=== PATIENT | male | born 1930 | race Caucasian/White ===

== ENCOUNTER 2018-12-27 12:51 | Emergency (ER) | payer MEDICARE, OTHER ==
[2018-12-27 13:21] LABS: #Basophils 0.1 thou/uL (0.0-0.2); #Eosinphils 0.2 thou/uL (0.0-0.7); #Lymphocytes 2.5 thou/uL (1.20-3.40); #Monocytes 0.7 thou/uL (0.11-0.59); #Neutrophils 4.6 thou/uL (1.40-6.50); %Basophils 0.9 % (0.0-1.0); %Eosinophils 1.9 % (0.0-10.0); %Lymphocytes 31.1 % (21.0-51.0); %Monocytes 8.8 % (0.0-10.0); %Neutrophils 57.2 % (42.0-75.0); Hemoglobin 14.3 g/dL (14.0-18.0); Mean Corpuscular HGB CONC 33.9 g/dL (32.0-36.0); Mean Corpuscular Hemoglobin 29.1 pg (27.0-31.0); Mean Corpuscular Volume 85.8 fL (78.0-98.0); Mean Platelet Volume 8.5 fL (7.4-10.4); Platelet Count 200 thou/uL (130-400); RBC Distribution Width 13.9 % (11.5-14.5); Red Blood Cell (RBC) Count 4.93 mill/uL (4.70-6.10)
--- NOTE | 2018-12-27 13:26 | RAD ---
EXAM: Single view of the chest HISTORY: Altered mental status COMPARISON: 10/07/2015 FINDINGS: Single view of the chest shows an enlarged but stable cardiomediastinal silhouette. Athero sclerotic calcification are seen in the aorta. A pacemaker is seen with its leads in the right atrium and ventricle. There is no evidence of consolidation, mass, or pleural effusion. [place] pro jects over the chest. IMPRESSION: No evidence of acute cardiopulmonary disease
[2018-12-27 13:45] LABS: ALT (SGPT) 10 U/L (8-55); AST (SGOT) 11 U/L (5-34); Albumin 3.8 g/dL (3.4-4.8); Alkaline Phosphatase 104 U/L (40-150); Anion Gap 15 mmol/L (10-20); BUN (Urea Nitrogen) 12 mg/dL (8.4-25.7); Bilirubin, Total 0.7 mg/dL (0.2-1.2); Calc. Creatinine Clearance 0 mL/min (70-130); Calcium 9.7 mg/dL (7.8-10.44); Carbon Dioxide 20 mmol/L (23-31); Chloride 107 mmol/L (98-107); Estimated GFR-MDRD 59; Globulin 3.1 g/dL (2.4-3.5); Glucose 343 mg/dL (83-110); Potassium 3.9 mmol/L (3.5-5.1); Protein, Total 6.9 g/dL (5.8-8.1); Sodium 138 mmol/L (136-145)
[2018-12-27 14:26] LABS: Bacteria/HPF None Seen HPF (None Seen); Bilirubin Negative (Negative); Blood, Urine Negative (Negative); Clarity Clear (Clear); Glucose, Urine (Dipstick) Greater than 1000 mg/dL (Negative); Leukocyte Negative Leu/uL (Negative); Nitrite Negative (Negative); Protein, Urine (Dipstick) 70 mg/dL (Neg-Trace); RBC/HPF 0-3 HPF (0-3); Squamous Epithelial 0-3 HPF (0-3); Urobilinogen Normal mg/dL (Less than 2); WBC/HPF 0-3 HPF (0-3)
== END 2018-12-27 14:40 | disposition home or self-care (01) ==
LOC: ERS 12:51
DX: E86.0 Dehydration (principal); E11.9 Type 2 diabetes mellitus without complications; I10 Essential (primary) hypertension
CPT/HCPCS: 36415; 71045; 80053; 81003; 81015; 85025; 93005

== ENCOUNTER 2019-02-03 09:33 | Observation (INO) | payer MEDICARE, OTHER ==
[2019-02-03 10:02] LABS: #Basophils 0.1 thou/uL (0.0-0.2); #Eosinphils 0.3 thou/uL (0.0-0.7); #Lymphocytes 3.4 thou/uL (1.20-3.40); #Neutrophils 5.8 thou/uL (1.40-6.50); %Basophils 0.9 % (0.0-1.0); %Eosinophils 2.4 % (0.0-10.0); %Monocytes 9.3 % (0.0-10.0); %Neutrophils 55.4 % (42.0-75.0); Mean Corpuscular Hemoglobin 27.8 pg (27.0-31.0); Mean Platelet Volume 8.1 fL (7.4-10.4); Platelet Count 251 thou/uL (130-400); RBC Distribution Width 13.4 % (11.5-14.5); Red Blood Cell (RBC) Count 5.39 mill/uL (4.70-6.10); White Blood Cell (WBC) Count 10.5 thou/uL (4.8-10.8)
[2019-02-03 10:42] LABS: ALT (SGPT) 12 U/L (8-55); AST (SGOT) 13 U/L (5-34); Albumin 4.2 g/dL (3.4-4.8); Alkaline Phosphatase 103 U/L (40-150); Anion Gap 14 mmol/L (10-20); BUN (Urea Nitrogen) 19 mg/dL (8.4-25.7); Bilirubin, Total 0.8 mg/dL (0.2-1.2); Calc. Creatinine Clearance 0 mL/min (70-130); Calcium 9.6 mg/dL (7.8-10.44); Carbon Dioxide 25 mmol/L (23-31); Chloride 105 mmol/L (98-107); Estimated GFR-MDRD 58; Globulin 2.8 g/dL (2.4-3.5); Glucose 139 mg/dL (83-110); Potassium 3.9 mmol/L (3.5-5.1); Sodium 140 mmol/L (136-145)
--- NOTE | 2019-02-03 10:59 | RAD ---
PORTABLE CHEST: Date: 02/03/19 HISTORY: Bradycardia. COMPARISON: 12/27/18. FINDINGS: Heart size appears enlarged. Pacemaker is present. The lungs are clear of any infiltrative process. N o signs of failure. IMPRESSION: No active intrathoracic disease. POS: TPC
--- NOTE | 2019-02-03 11:04 | CT ---
CT HEAD: Date: 02/03/19 COMPARISON: None. HISTORY: Diaphoresis, fixed pupils. Altered mental status. TECHNIQUE: Axial CT imaging at 5 mm intervals from vertex through skull base without contrast. FINDINGS: There are a few scattered metallic foreign bodies within the scalp posteriorly and anteriorly on the right. There is atherosclerotic calcification of the cavernous carotid arteries. The visualized paranasal sinuses and mastoid air cells are well aerated. No displaced calvarial fracture is seen. No intracranial hemorrhage, midline shift, or mass effect. Periventricular hypodensity noted, evidence of small vessel disease. There is atherosclerotic calcifi cation of the distal left vertebral artery. IMPRESSION: Mild small vessel disease. No intracranial hemorrhage. POS: OFF
[2019-02-03 15:25] LABS: Troponin I 0.018 ng/mL (< 0.028)
[2019-02-03] MEDS ORDERED: Ondansetron PF 4 MG/2 ML Vial IVP PRN (17:14)
[2019-02-03] MEDS ORDERED: Acetaminophen 500 MG TAB PO PRN (17:14)
[2019-02-03] MEDS ORDERED: HumaLOG 300 UNITS/3 ML VIAL SC PRN (17:14)
[2019-02-03] MEDS ORDERED: Dextrose 5% in Water 1,000 ML IV PRN (17:14)
[2019-02-03] MEDS ORDERED: Dextrose 50% Abboject 50 ML SYRINGE SLOW IVP PRN (17:14)
[2019-02-03] MEDS ORDERED: Ondansetron ODT 4 MG TAB PO PRN (17:14)
[2019-02-03] MEDS ORDERED: hydrALAZINE 20 MG/ML VIAL SLOW IVP PRN (17:14)
[2019-02-03 17:59] LABS: Troponin I 0.011 ng/mL (< 0.028)
[2019-02-03 18:18] LABS: Platelet Count 223 thou/uL (130-400)
[2019-02-03 18:40] LABS: Bacteria/HPF None Seen HPF (None Seen); Bilirubin Negative (Negative); Blood, Urine Negative (Negative); Clarity Clear (Clear); Glucose, Urine (Dipstick) Greater than 1000 mg/dL (Negative); Leukocyte Negative Leu/uL (Negative); Nitrite Negative (Negative); Protein, Urine (Dipstick) 100 mg/dL (Neg-Trace); RBC/HPF 0-3 HPF (0-3); Squamous Epithelial 0-3 HPF (0-3); Urobilinogen Normal mg/dL (Less than 2); WBC/HPF 0-3 HPF (0-3)
[2019-02-03 18:42] LABS: Urine Culture Reflex No No
[2019-02-03] MEDS: Gabapentin 300 MG CAP PO SCH (21:02)
[2019-02-03] MEDS: Metoprolol Tartrate 25 MG TAB PO SCH (21:02)
--- NOTE | 2019-02-04 00:23 | HP ---
PRIMARY CARE PROVIDER: Dr. Ellis. CHIEF COMPLAINT: Found down. 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 The patient states he felt lightheaded and feeling of weakness in his upper body, sitting himself in a chair at the kitchen table. The patient apparently passed out up to 5 minutes according to the grandson and . The patient was noted with urinary incontinence, however, no seizure activity was reported. The patient had a similar incident approximately 4 weeks prior to this evaluation with similar presentation and urinary incontinence. The patient states he has had 2 prior episodes when he was hospitalized at [facility] in [place], undergoing a left lower extremity bypass surgery due to peripheral vascular disease. The patient denies any new medications or exposure history, recent travel, or fever. The patient denies family members with similar symptoms. The patient denied any unilateral weakness. The patient's grandson states his glucose was over 130 when checked at his house during the episode. The patient denied taking any chronic medications or his regular insulin prior to this episode. In the emergency room, the patient underwent general evaluation with workup to include interrogation of his pacemaking device showing normal functioning device without evidence of pause or tachyarrhythmias. The patient received general supportive management including IV fluids, undergoing metabolic screening showing negative findings. EKG showed a ventricular paced rhythm in the 70s. PAST MEDICAL HISTORY: 1. Atrial fibrillation with cardiac pacemaker device. 2. Chronic anticoagulation with Xarelto. 3. 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 4. Coronary artery disease. 5. Peripheral vascular disease. 6. History of syncopal episodes with unknown etiology. 7. Hypertension. PAST SURGICAL HISTORY: 1. Status post cholecystectomy. 2. Status post left toe amputation. 3. Status post left femoral bypass secondary to peripheral vascular disease. CURRENT MEDICATIONS: 1. Tylenol No. 3, 300/30 mg one tablet p.o. q.8 hours p.r.n. pain. 2. Enteric-coated aspirin 81 mg p.o. daily. 3. Gabapentin 300 mg p.o. t.i.d. 4. [place] 10/325 mg one tablet p.o. b.i.d. p.r.n. 5. Levemir 60 units subcutaneously daily. 6. Lisinopril 10 mg p.o. daily. 7. Metformin 500 mg p.o. b.i.d. 8. Metoprolol tartrate 25 mg p.o. b.i.d. 9. Pravachol 80 mg p.o. at bedtime. 10. Propafenone 225 mg p.o. daily. 11. Xarelto 20 mg p.o. at bedtime. ALLERGIES: NO KNOWN DRUG ALLERGIES. FAMILY HISTORY: No inheritable diseases per patient report. SOCIAL HISTORY: The patient is , resides in [place], [place]. Ambulates with use of a cane. Occasional alcohol use. No illicit drug use or tobacco. Accompanied by his grandson in the hospital. REVIEW OF SYSTEMS: CONSTITUTIONAL: Negative for weight loss or gain, ability to conduct usual activities. SKIN: Negative for rash, itching. EYES: Negative for double vision, pain. ENT/MOUTH: Negative for nose bleeding, neck stiffness, pain, tenderness. CARDIOVASCULAR: Negative for palpitations, dyspnea on exertion, orthopnea. RESPIRATORY: Negative for shortness of breath, wheezing, cough, hemoptysis, fever or night sweats. GASTROINTESTINAL: Negative for poor appetite, abdominal pain, heartburn, nausea, vomiting, constipation, or diarrhea. GENITOURINARY: Negative for urgency, frequency, dysuria, nocturia. MUSCULOSKELETAL: Negative for pain, swelling. NEUROLOGIC/PSYCHIATRIC: Negative for anxiety, depression. ALLERGY/IMMUNOLOGIC: Negative for skin rash, bleeding tendency. Otherwise negative except as stated per HPI. PHYSICAL EXAMINATION: VITAL SIGNS: On admission, blood pressure 143/65, pulse 72, respiratory rate 17, temperature 98.3 degrees Fahrenheit, O2 saturation 98% on room air. GENERAL APPEARANCE: This is an 88-year-old male, alert and oriented x3, pleasant, responsive, in no acute distress. HEENT: Pupils are equal, round, reactive to light and accommodation. Extraocular muscles are intact. No scleral icterus. No conjunctival injection. Nares are patent. OP is clear. Teeth in fair repair. NECK: Supple. No cervical adenopathy. No thyromegaly. No carotid bruits. No JVD appreciated. Cervical spine with full active and passive range of motion. No meningeal signs noted. CHEST: Lungs are clear to auscultation bilaterally. CARDIOVASCULAR: S1 and S2 without noted murmur, rub, or gallop. Left upper chest wall pacemaker device in place. ABDOMEN: Rounded, soft, nontender, and nondistended. Bowel sounds are positive in all 4 quadrants. No hepatosplenomegaly. No abdominal bruits. No rebound or guarding appreciated. EXTREMITIES: Warm and dry with fair turgor. No clubbing, cyanosis, or asymmetric edema appreciated. Pulses are diminished at the left lower extremity at the dorsalis and posterior tibial arteries. Capillary refill less than 2 seconds. Postsurgical changes noted to the left foot with toe amputations. NEUROLOGIC: Cranial nerves 2 through 12 are grossly intact. No focal or lateralizing signs appreciated. PERTINENT LAB AND X-RAY FINDINGS: Basic metabolic profile within normal limits. Glucose 139, calcium 9.6. LFTs within normal limits. Troponin I negative x2. CBC within normal limits. Portable chest x-ray dated 02/03/2019, showed no acute cardiopulmonary process. CT of the brain without contrast dated 02/03/2019, showed no acute intracranial process. EKG dated 02/03/2019 by my interpretation shows a ventricular paced rhythm in the 70s. ASSESSMENT/PLAN: 1. Syncopal episode. The patient will be observed on the telemetry unit. Exact etiology unclear. Check 2D transthoracic echocardiogram, carotid Doppler study, and orthostatic vital signs. Check TSH, magnesium level, and troponin I to complete a third cardiac biomarker. Continue serial glucose monitoring and telemetry monitoring. Pacemaker interrogation shows normal functioning device in the emergency room. Consider EEG evaluation and consult Neurology Service for evaluation. 2. Chronic kidney disease, stage 3. Avoid nephrotoxic agents and limit contrast exposure. Repeat creatinine in the a.m. 3. Hypertension. Resume home blood pressure regimen and monitor clinical response. 4. Peripheral vascular disease. Continue aspirin 81 mg daily. Continue Pravachol 40 mg p.o. at bedtime. 5. Diabetes mellitus type 2, insulin requiring. Confirm home insulin regimen. Serial Accu-Cheks before meals and at bedtime. Insulin sliding scale for reflexive coverage. ADA diet. 6. Chronic anticoagulation. Continue Xarelto 20 mg p.o. at bedtime. 7. Prophylaxis. SCDs while in bed. Pepcid 20 mg p.o. b.i.d. PT evaluation in the a.m. CODE STATUS: Full. Surrogate medical decision maker is the patient's spouse. Job ID: [id number]
[2019-02-04] MEDS: HumaLOG 300 UNITS/3 ML VIAL SC PRN ×3 (06:07→16:59)
[2019-02-04 06:25] LABS: Hemoglobin A1c 9.6 % (4.0-6.0)
[2019-02-04 06:33] LABS: Band 4 % (5-11); Eosinophils 2 % (0-10); Lymphocytes 36 % (21-51); MDiff Complete? YES; Mean Corpuscular HGB CONC 33.2 g/dL (32.0-36.0); Mean Corpuscular Hemoglobin 28.4 pg (27.0-31.0); Mean Corpuscular Volume 85.5 fL (78.0-98.0); Mean Platelet Volume 8.4 fL (7.4-10.4); Monocytes 9 % (0-10); Neutrophil 49 % (42-75); Platelet Count 212 thou/uL (130-400); RBC Distribution Width 13.3 % (11.5-14.5); Red Blood Cell (RBC) Count 4.93 mill/uL (4.70-6.10); White Blood Cell (WBC) Count 7.2 thou/uL (4.8-10.8)
[2019-02-04 06:41] LABS: Anion Gap 11 mmol/L (10-20); BUN (Urea Nitrogen) 20 mg/dL (8.4-25.7); Calc. Creatinine Clearance 66 mL/min (70-130); Carbon Dioxide 24 mmol/L (23-31); Chloride 106 mmol/L (98-107); Estimated GFR-MDRD 75; Glucose 203 mg/dL (83-110); Magnesium 1.9 mg/dL (1.6-2.6); Potassium 4.3 mmol/L (3.5-5.1); Sodium 137 mmol/L (136-145)
[2019-02-04] MEDS: metFORMIN 500 MG TAB PO SCH ×2 (08:18→16:54)
[2019-02-04] MEDS: Famotidine 20 MG TAB PO SCH (08:18)
[2019-02-04] MEDS: Aspirin 81 mg Enteric Coated Tablet PO SCH (08:18)
[2019-02-04] MEDS: Metoprolol Tartrate 25 MG TAB PO SCH ×2 (08:19→21:18)
[2019-02-04] MEDS: Gabapentin 300 MG CAP PO SCH ×3 (08:19→21:18)
[2019-02-04] MEDS: Propafenone HCl 150 MG TAB PO SCH (08:19)
[2019-02-04] MEDS: Lisinopril 10 MG TAB PO SCH (08:19)
--- NOTE | 2019-02-04 08:45 | ULT ---
US Carotid Doppler STANDARD History: Syncope Comparison: Carotid Doppler 2004 Findings: Real-time grayscale and color evaluation of the extracranial carotid and vertebral arteries was obtained. There is high-grade plaque of both carotid bulbs. Antegrade flow both vertebral arteries. Mildly elevated peak systolic velocity within the right proximal internal carotid artery at 138 cm/s. Flow within the left distal internal carotid artery cannot be ascertained. Impression: 1. Mildly elevated peak systolic velocity right internal carotid artery, 50-69% stenosis. 2. No definite flow within the left distal internal carotid artery although could be sequelae of tort uosity from chronic hypertension. CT angiogram recommended nonemergently.
[2019-02-04] MEDS ORDERED: Iopamidol 370 76% 100 ML VIAL ONE (11:38)
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
[2019-02-04 16:55] VITALS: BMI 30.2
[2019-02-04] MEDS ORDERED: Rivaroxaban 10 MG TAB PO SCH (17:00)
--- NOTE | 2019-02-04 17:34 | PDOC.HOSPP ---
- Subjective Encounter Date: 02/04/19 Encounter Time: 17:30 Subjective: f/u for syncopal episode. No new events reported, + orthostatics per nursing. - Objective Vital Signs & Weight: Vital Signs (12 hours) Temp Pulse Pulse Pulse Pulse Pulse Resp 02/04/19 14:12 69 16 02/04/19 12:10 98.1 F 70 16 02/04/19 09:21 70 78 69 70 02/04/19 08:24 97.6 F 68 20 BP BP BP BP BP BP BP 02/04/19 14:12 140/60 122/58 L 02/04/19 12:10 132/62 02/04/19 09:21 149/65 H 155/72 H 144/66 H 144/79 H 02/04/19 08:24 169/71 H BP Pulse Ox 02/04/19 14:12 135/61 02/04/19 12:10 97 02/04/19 09:21 02/04/19 08:24 96 Weight Admit Weight 187 lb Weight 187 lb I&O: 02/03/19 02/04/19 02/05/19 06:59 06:59 06:59 Intake Total 720 Output Total 550 Balance 170 Result Diagrams: 02/04/19 05:57 02/04/19 05:57 Additional Labs: Accuchecks 02/04/19 02/04/19 02/04/19 17:01 10:37 06:08 POC Glucose 210 H 227 H 189 H 02/03/19 02/03/19 21:16 17:32 POC Glucose 311 H 232 H Laboratory Tests 02/03/19 02/03/19 02/03/19 09:48 14:49 17:28 Hemoglobin A1c Magnesium Troponin I Less than 0.010 0.018 0.011 TSH 3rd Generation 02/04/19 02/04/19 02/04/19 05:57 05:57 05:57 Hemoglobin A1c 9.6 H Magnesium 1.9 Troponin I TSH 3rd Generation 0.8025 Radiology Reviewed by me: Yes (CTA neck - tortuous L carotid, mild stenosis RCA) EKG Reviewed by me: Yes (Tele - ) Hospitalist ROS - Medication Medications: Active Medications Generic Name Dose Route Start Last Admin Trade Name Freq PRN Reason Stop Dose Admin Aspirin 81 mg 02/04/19 09:00 02/04/19 08:18 Ecotrin PO 81 mg DAILY ISABELLE Administration Famotidine 20 mg 02/04/19 09:00 02/04/19 08:18 Pepcid PO 20 mg DAILY ISABELLE Administration Gabapentin 300 mg 02/03/19 21:00 02/04/19 14:24 Neurontin PO 300 mg TID ISABELLE Administration Insulin Human Lispro 0 units 02/03/19 17:14 02/04/19 16:59 Humalog SC 3 unit .MILD SLIDING SCALE PRN Administration Mild Correctional Scale Insulin Human Lispro 0 units 02/03/19 17:14 02/03/19 21:36 Humalog SC 4 unit .BEDTIME SLIDING SC PRN Administration Bedtime Correctional Scale Lisinopril 10 mg 02/04/19 09:00 02/04/19 08:19 Zestril PO 10 mg DAILY ISABELLE Administration Metformin HCl 500 mg 02/04/19 08:00 02/04/19 16:54 Glucophage PO 500 mg BID-WM ISABELLE Administration Metoprolol Tartrate 25 mg 02/03/19 21:00 02/04/19 08:19 Lopressor PO 25 mg BID ISABELLE Administration Propafenone HCl 225 mg 02/04/19 09:00 02/04/19 08:19 Rythmol PO 225 mg DAILY ISABELLE Administration Rivaroxaban 20 mg 02/04/19 17:00 02/04/19 16:54 Xarelto PO 20 mg QPM-WM ISABELLE Administration - Exam General Appearance: NAD, awake alert Eye: PERRL, anicteric sclera ENT: normocephalic atraumatic, no oropharyngeal lesions Neck: supple, symmetric, no JVD, no thyromegaly, no lymphadenopathy Heart: no gallops, no rubs, normal peripheral pulses Respiratory: CTAB, no wheezes, no rales, no ronchi Gastrointestinal: soft, non-tender, non-distended, normal bowel sounds Extremities: no cyanosis, no clubbing Skin: normal turgor, no lesions Neurological: cranial nerve grossly intact, no focal deficits, no new deficit Musculoskeletal: normal tone, normal strength Psychiatric: normal affect, A&O x 3 Hosp A/P (1) Syncope Code(s): R55 - SYNCOPE AND COLLAPSE Status: Acute Plan: Likely due to orthostatic hypotension, work up otherwise unremarkable including negative EEG, 2D echo pending (2) Orthostatic hypotension Code(s): I95.1 - ORTHOSTATIC HYPOTENSION Status: Acute Plan: Decrease Metoprolol 12.5mg BID, serial BP monitoring (3) DM type 2 (diabetes mellitus, type 2) Status: Chronic Plan: ISS, Metformin, ADA (4) HTN (hypertension) Code(s): I10 - ESSENTIAL (PRIMARY) HYPERTENSION Status: Chronic Qualifiers: Hypertension type: essential hypertension Qualified Code(s): I10 - Essential (primary) hypertension (5) PVD (peripheral vascular disease) Code(s): I73.9 - PERIPHERAL VASCULAR DISEASE, UNSPECIFIED Status: Chronic Plan: Continue ASA, Xarelto (6) CKD (chronic kidney disease), stage III Code(s): N18.3 - CHRONIC KIDNEY DISEASE, STAGE 3 (MODERATE) Status: Chronic (7) Chronic anticoagulation Code(s): Z79.01 - INTERMEDIATE (CURRENT) USE OF ANTICOAGULANTS Status: Chronic Plan: Continue Xarelto - Plan PT/OT, out of bed/ambulate, DVT proph w/SCDs Stable currently 2D echo pending Continue ASA/Xarelto Appreciate Neurology assistance Decrease Metoprolol 12.5mg BID Resume Pravachol Resume Levemir Likely home in 24h
[2019-02-04] MEDS ORDERED: Pravastatin Sodium 40 MG TAB PO SCH (21:00)
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
[2019-02-05] MEDS: Famotidine 20 MG TAB PO SCH (08:05)
[2019-02-05] MEDS: Propafenone HCl 150 MG TAB PO SCH (08:05)
[2019-02-05] MEDS: Metoprolol Tartrate 25 MG TAB PO SCH (08:05)
[2019-02-05] MEDS: Aspirin 81 mg Enteric Coated Tablet PO SCH (08:06)
[2019-02-05] MEDS: Lisinopril 10 MG TAB PO SCH (08:06)
[2019-02-05] MEDS: metFORMIN 500 MG TAB PO SCH (08:06)
[2019-02-05] MEDS: Gabapentin 300 MG CAP PO SCH (08:06)
[2019-02-05] MEDS: HumaLOG 300 UNITS/3 ML VIAL SC PRN (08:07)
[2019-02-05 08:12] VITALS: BP 168/77; TEMP 98
[2019-02-05] MEDS ORDERED: Insulin Glargine 60 UNITS in Pre-Filled Syringe SC SCH (09:00)
[2019-02-05] MEDS ORDERED: LEVEMIR 60 UNIT SC SCH (09:00)
--- NOTE | 2019-02-05 10:57 | EEG ---
Referring Physician: Keith LOGAN EEG # [id number] TEST TYPE: ROUTINE PORTABLE INPATIENT REPORT: AN EEG USING THE INTERNATIONAL TEN-TWENTY SYSTEM OF ELECTRODE PLACEMENT WAS PERFORMED. The waking background is a low amplitude 9-10 hertz alpha frequency. The patient remained awake throughout the study. Photic stimulation was unremarkable. No epileptiform features were identified. EKG rhythm was irregular. IMPRESSION: THIS IS A NORMAL AWAKE EEG. EKG ABNORMALITIES WERE NOTED. Technical Associate: MIGUEL Manual Tester: [email or web address]
--- NOTE | 2019-02-06 03:52 | DIS ---
DATE OF ADMISSION: 02/03/2019 DATE OF DISCHARGE: 02/05/2019 DISCHARGE DIAGNOSES: 1. Syncope, likely due to orthostatic hypotension, stable. 2. Orthostatic hypotension, mild. 3. Diabetes mellitus type 2, labile. 4. Hypertension. 5. Peripheral vascular disease, status post left femoral-popliteal bypass. 6. Chronic kidney disease stage 3. 7. Chronic anticoagulation with Xarelto. 8. Carotid artery disease, medical management. CONSULTATIONS: 1. Dr. Brandon with Vascular Surgery Service. 2. Dr. Okeefe with Neurology Service. PERTINENT LABORATORY AND X-RAY FINDINGS: Creatinine ranged between 0.95 to 1.21. Estimated GFR ranged between 57 to 75. Hemoglobin A1c 9.6. Troponin I negative x3. TSH 0.80. CBC within normal limits. Portable chest x-ray dated 02/03/2019, showed no acute cardiopulmonary process. CT of the brain without contrast dated 02/03/2019, showed minimal chronic small-vessel ischemic changes. No acute process identified. CT angiogram of the head and neck showed 50% luminal narrowing of the right carotid bulb. No hemodynamically significant stenosis of bilateral internal carotid arteries. Carotid Doppler study dated 02/04/2019, showed 50% to 69% stenosis of the right internal carotid artery. No flow within the left distal internal carotid artery. EEG dated 02/04/2019, showed no focal seizure activity. HOSPITAL COURSE: The patient was initially admitted to the telemetry unit after presenting status post syncopal episode. The patient underwent extensive evaluation including neuroimaging as well as EEG evaluation without focal findings. The patient was noted with orthostatic hypotension with decreased metoprolol dosing to 12.5 b.i.d. Telemetry monitoring showed no acute arrhythmia or dysrhythmia, and pacemaker interrogation showed normal functioning device. The patient was evaluated for potential carotid artery disease; however, review of the CT angiogram of the neck showed no hemodynamically significant stenosis after a previous carotid Doppler study showed no flow in the left carotid system. No specific intervention recommended at this time. The patient remained clinically stable throughout the hospital course, tolerating regular oral intake and ambulating short distance without difficulty. Vital signs remained stable throughout the hospital course. I have examined the patient at the time of discharge and discussed followup instructions. The patient verbalized understanding and in agreement, ready for discharge on 02/05/2019. DISCHARGE MEDICATIONS: 1. Tylenol 1 tablet p.o. daily p.r.n. pain. 2. Enteric-coated aspirin 81 mg p.o. daily. 3. Gabapentin 300 mg p.o. t.i.d. 4. Levemir 60 units subcutaneously daily. 5. Lisinopril 10 mg p.o. daily. 6. Metformin 500 mg p.o. b.i.d. 7. Pravachol 40 mg p.o. at bedtime. 8. Propafenone 225 mg p.o. daily. 9. Xarelto 20 mg p.o. at bedtime. 10. Metoprolol tartrate 12.5 mg p.o. b.i.d. 11. Debrox 6.5% otic solution 5-10 drops in each ear b.i.d. p.r.n. FOLLOWUP: The patient may follow up with his primary care provider, Dr. Afshin Ellis within 7 days of discharge. CONDITION ON DISCHARGE: Stable. ACTIVITY: Ad-blas. Cane or rolling walker for ambulation. DIET: ADA. CODE STATUS: Full. DISPOSITION: Home on 02/05/2019. Job ID: [id number]
--- NOTE | 2019-02-07 13:28 | EKG ---
Test Reason : DAVE Blood Pressure : / mmHG Vent. Rate : 071 BPM Atrial Rate : 068 BPM P-R Int : 000 ms QRS Dur : 184 ms QT Int : 494 ms P-R-T Axes : 000 -77 078 degrees QTc Int : 536 ms Electronic ventricular pacemaker Confirmed by LALIT SANTANA, AUGUST ([id number]), editor dictionary ERENDIRA ADAMS ([id number]) on 02/07/2019 1:28:31 PM Referred By: JUANY Confirmed By:AUGUST COHN MD
== END 2019-02-05 10:43 | disposition home or self-care (01) ==
LOC: ERS 09:33 → 2SW 14:23
PROVIDERS: ADMIT Family Medicine; ATTEND Family Medicine
DX: I95.1 Orthostatic hypotension (principal); I12.9 Hypertensive chronic kidney disease with stage 1 through stage 4 chronic kidney disease, or unspecified chronic kidney disease; E11.22 Type 2 diabetes mellitus with diabetic chronic kidney disease; N18.3 Chronic kidney disease, stage 3 (moderate); I48.2 Chronic atrial fibrillation; E11.51 Type 2 diabetes mellitus with diabetic peripheral angiopathy without gangrene; I25.10 Atherosclerotic heart disease of native coronary artery without angina pectoris; Z79.01 Long term (current) use of anticoagulants; Z79.4 Long term (current) use of insulin; Z79.82 Long term (current) use of aspirin; Z79.899 Other long term (current) drug therapy; Z95.0 Presence of cardiac pacemaker; Z95.820 Peripheral vascular angioplasty status with implants and grafts
CPT/HCPCS: 70450; 70498; 71045; 80048; 80053; 81001; 82565; 82962 ×3; 83036; 83735; 84443; 84484 ×2; 85007; 85014; 85018; 85025; 85027; 85049; 93005; 93306; 93880; 95816; 95819; 97116; 97139; 99291; G0378 ×4; 36415; 36416; J1815; Q9967

== ENCOUNTER 2019-11-29 06:35 | Inpatient (IN) | payer MEDICARE, OTHER ==
[2019-11-29] MEDS ORDERED: Acetaminophen 500 MG TAB ONE (07:46)
[2019-11-29] MEDS ORDERED: Ondansetron PF 4 MG/2 ML Vial ONE (08:16)
[2019-11-29 08:17] LABS: #Basophils 0.1 thou/uL (0.0-0.2); #Lymphocytes 0.6 thou/uL (1.20-3.40); #Neutrophils 8.7 thou/uL (1.40-6.50); %Basophils 0.6 % (0.0-1.0); %Eosinophils 0.1 % (0.0-10.0); %Lymphocytes 5.9 % (21.0-51.0); %Neutrophils 83.4 % (42.0-75.0); Hemoglobin 13.3 g/dL (14.0-18.0); Mean Corpuscular HGB CONC 33.3 g/dL (32.0-36.0); Mean Platelet Volume 9.7 fL (7.4-10.4); Platelet Count 147 thou/uL (130-400); RBC Distribution Width 13.3 % (11.5-14.5); Red Blood Cell (RBC) Count 4.42 mill/uL (4.70-6.10); White Blood Cell (WBC) Count 10.5 thou/uL (4.8-10.8)
[2019-11-29 08:40] LABS: Bilirubin, Total 1.9 mg/dL (0.2-1.2); Calcium 7.9 mg/dL (7.8-10.44); Chloride 105 mmol/L (98-107); Potassium 4.5 mmol/L (3.5-5.1); Sodium 135 mmol/L (136-145)
[2019-11-29 08:51] LABS: ALT (SGPT) 51 U/L (8-55); AST (SGOT) 59 U/L (5-34); Albumin 3.3 g/dL (3.4-4.8); Alkaline Phosphatase 160 U/L (40-110); BUN (Urea Nitrogen) 37 mg/dL (8.4-25.7); Calc. Creatinine Clearance 0 mL/min (70-130); Carbon Dioxide 20 mmol/L (23-31); Estimated GFR-MDRD 49; Globulin 2.3 g/dL (2.4-3.5); Glucose 222 mg/dL (83-110); Protein, Total 5.6 g/dL (5.8-8.1)
[2019-11-29 09:25] LABS: INR-International Normal Ratio 3.3; PTT 55.7 sec (22.9-36.1); Prothrombin Time 33.2 sec (12.0-14.7)
[2019-11-29 09:26] LABS: D-Dimer Test 1.47 *mcg/mL (0.27-0.43)
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
[2019-11-29 09:34] LABS: Bacteria/HPF 1+ HPF (None Seen); Bilirubin Negative (Negative); Blood, Urine Trace (Negative); Clarity Clear (Clear); Glucose, Urine (Dipstick) 70 mg/dL (Negative); Ketone, Urine 10 mg/dL (Negative); Leukocyte Negative Leu/uL (Negative); Nitrite Negative (Negative); Protein, Urine (Dipstick) 70 mg/dL (Neg-Trace); RBC/HPF 0-3 HPF (0-3); Squamous Epithelial 0-3 HPF (0-3); WBC/HPF 0-3 HPF (0-3); pH, Urine 5.5 (5.0-9.0)
--- NOTE | 2019-11-29 10:00 | CT ---
CT ABDOMEN WITH CONTRAST CT PELVIS WITH CONTRAST: DATE: 11/29/2019 HISTORY: 89-year-old male with nausea and vomiting COMPARISON: 12/12/2016 from [facility], the report of which is not available. TECHNIQUE: IV injection of iodinated contrast media: administered. Because of IV contrast leak, the injection was stopped. IV catheter was adjusted, and injection was t hen continued after the disruption. Oral contrast media:Not administered FINDINGS: Because of the initial IV contrast leak, and division of the IV contrast injection into 2 different t imes, there is excreted contrast material throughout the bilateral renal collecting systems and ureters. There is no hydronephrosis. The IV contrast has not yet reached the unremarkable appearing u rinary bladder. New finding of distention of the rectum by large volume of stool. Diameter 6.5 x 5.5 cm. No pneumatos is identified. New finding of thin layer of edema/fluid circumferentially around the rectum and presacral space. Numerous diverticula throughout the descending and sigmoid colon. New finding of pericolonic fat stranding representing edema in the mesentery adjacent to the proximal sigmoid colon. Borderline or mild splenomegaly, unchanged. Mild diffuse intrahepatic biliary ductal dilation due to cholecystectomy, unchanged. No solid hepatic mass or liver abscess. New finding of minimal layer of dependent subsegmental atelectasis broadly abutting posterior pleural surfaces at bilateral lung bases. No consolidation. Multilevel degenerative disc disease throughout lower thoracic spine and lumbar spine. No pneumoperitoneum, small bowel dilation, or ascites. No acute pancreatitis or adrenal nodule. Heavy atherosclerotic calcification of nonaneurysmal abdominal aorta and its branches, including sign ificant stenosis at origins of SMA and celiac artery, and route bilateral iliac arteries. Appendix not visualized. No appendicitis.. IMPRESSION: 1) evidence for proximal sigmoid colonic diverticulitis. 2) findings suggestive of stercoral proctitis. 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
[2019-11-29] MEDS ORDERED: Piperacillin/Tazobactam 4.5 GM VIAL ONE (10:11)
[2019-11-29] MEDS ORDERED: Acetaminophen 325 MG TAB PO PRN (10:57)
[2019-11-29] MEDS ORDERED: Bisacodyl 5 MG TAB PO PRN (10:57)
[2019-11-29] MEDS ORDERED: Senokot S 8.6-50 MG TAB PO PRN (10:57)
[2019-11-29] MEDS ORDERED: Ondansetron PF 4 MG/2 ML Vial IVP PRN (10:57)
[2019-11-29] MEDS ORDERED: Ondansetron ODT 4 MG TAB PO PRN (10:57)
[2019-11-29] MEDS ORDERED: Dextrose 50% Abboject 50 ML SYRINGE SLOW IVP PRN (11:00)
[2019-11-29] MEDS ORDERED: Dextrose 5% in Water 1,000 ML IV PRN (11:00)
[2019-11-29] MEDS: Sodium Chloride 0.9% 1,000 ML IV SCH (11:15)
[2019-11-29 12:51] LABS: Critical Call Chem Troponin I RESULT DECREASING; Troponin I 0.345 ng/mL (< 0.028)
[2019-11-29] MEDS ORDERED: Iopamidol-370 76% 500 ML 1 ML ONE (15:06)
[2019-11-29] MEDS: metroNIDAZOLE 500 MG in Premix Bag 1 BAG IVPB SCH ×2 (17:44→23:30)
[2019-11-29] MEDS: Rivaroxaban 10 MG TAB PO SCH (17:44)
[2019-11-29] MEDS: Gabapentin 300 MG CAP PO SCH ×2 (17:44→21:51)
[2019-11-29] MEDS ORDERED: Piperacillin/Tazobactam 3.375 GM in Sodium Chloride 0.9% 100 ML IVPB SCH (18:00)
--- NOTE | 2019-11-29 19:43 | HP ---
CHIEF COMPLAINT: Abdominal pain. HISTORY OF PRESENT ILLNESS: An 89-year-old male with a history of hypertension, type 2 diabetes mellitus, peripheral vascular disease with femoral popliteal bypass recently, chronic kidney disease stage 3, and anticoagulation with Xarelto, presenting with lower abdominal pain. CT abdomen showed sigmoid diverticulitis as well as proctocolitis. The patient is afebrile and normal white count. The patient has dementia and more information is not able to obtain from him directly. He had nausea, vomiting, as well as low-grade temp prior to be transferred here. A rapid COVID test is negative. The patient got IV fluid as well as Zosyn in the ER. The patient was not complaining of any chest pain, short of breath, or productive cough. EKG showed T inversions in the lateral leads and his troponin was 0.5 initially. The patient is on Xarelto and his INR is 3.1. Again, no definite history obtained directly from the patient. REVIEW OF SYSTEMS: Not obtainable. ALLERGIES: NO KNOWN DRUG ALLERGIES. PAST MEDICAL HISTORY: 1. Chronic kidney disease stage 3. 2. Peripheral vascular disease with left femoropopliteal bypass recently, on Xarelto. 3. Hypertension. MEDICATIONS: 1. Aspirin 81 mg daily. 2. Gabapentin 300 mg three times a day. 3. Levemir 60 units daily. 4. Lisinopril 10 mg daily. 5. Metformin 500 mg twice a day. 6. Propafenone 225 mg p.o. daily. 7. Pravachol 40 mg at bedtime. 8. Xarelto 20 mg at bedtime. 9. Metoprolol tartrate 12.5 mg. Again, these medications have not updated yet. These are from the previous discharge medications in 2019. SOCIAL HISTORY: I believe the patient [facility] the [facility]. Does not smoke or drink alcohol. FAMILY HISTORY: Noncontributory. PHYSICAL EXAMINATION: VITAL SIGNS: He is afebrile. He is normotensive. GENERAL: He looks in mild distress, but when I asked for abdominal pain, he denies any significant pain, but he says he needs another blanket. CARDIOVASCULAR: Regular rate and rhythm without murmurs, rubs, or gallops. LUNGS: Clear to auscultation bilaterally without wheezing, rales, or rhonchi. ABDOMEN: Soft, nondistended. Bowel sounds are positive. Mild tenderness on the left lower quadrant. No suprapubic tenderness noted. No flank tenderness. No rashes over the abdomen. EXTREMITIES: Without any pitting edema. NEUROLOGIC: No focal deficit. Cranial nerves 2 through 12 are grossly intact. He is moving his extremities spontaneously. Mentation seems to be at the baseline. No sign of confusion. However, the patient seems to have dementia. LABORATORY DATA: He has no elevated white count. Hemoglobin is 13.3. INR is 3.3. D-dimer 1.47. His creatinine 1.36, sodium 135, blood glucose 222. Total bilirubin is 1.9. Alkaline phosphatase 160. His troponin is trending up 0.345 and 0.22 after the first one of 0.50. EKG showed T inversions in the inferior leads. CT abdomen and pelvis showed sigmoid diverticulitis and proctocolitis. Chest x-ray, no significant intrathoracic disease. IMPRESSION AND PLAN: This is an 89-year-old male, presenting with the following. 1. Sigmoid diverticulitis and stercoral proctitis. We will get IV fluid and empiric antibiotic with Cipro and Flagyl to cover for abdominal infection. 2. Acute kidney injury. Again, IV fluid and repeat the electrolyte panel. 3. Abnormal troponin/metabolic mismatch type 2 demand ischemia. The patient is on appropriate cardiac medications including Xarelto. He had an echo done in January 2019, showed EF of 55% and moderately dilated left atria. 4. Thickened aortic valve without any significant gradient. Mild tricuspid and pulmonic regurgitation. 5. Proteinuria. 6. Asymptomatic urinary tract infection. 7. COVID negative. The patient will be monitored in the next couple of days with IV antibiotics for his diverticulitis. Believe this is is first episode. We will start him on clear liquid diet. We will repeat the electrolyte panel. 8. Regarding his abnormal troponin, likely demand ischemia. The patient is on Xarelto and propafenone. Not sure at this point any aggressive cardiac intervention required. we will request the Cardiology input tomorrow morning. Hence, a nonemergent consult for tomorrow morning. 9. Asymptomatic urinary tract infection. We will cover with the Cipro and Flagyl as above. 10. Rest of the management based on the clinical course. 11. Deep venous thrombosis prophylaxis with Xarelto. We will monitor him closely. At this point, no need to stop the Xarelto unless he has any blood in the stool. Job ID: [id number] MTDD
[2019-11-29] MEDS: Atorvastatin Calcium 10 MG TAB PO SCH (21:51)
[2019-11-29] MEDS: Metoprolol Tartrate 25 MG TAB PO SCH (21:51)
[2019-11-30] MEDS: Sodium Chloride 0.9% 1,000 ML IV SCH (02:42)
[2019-11-30 04:55] LABS: Band 15 % (5-11); Eosinophils 1 % (0-10); Hemoglobin 12.8 g/dL (14.0-18.0); Lymphocytes 23 % (21-51); MDiff Complete? YES; Mean Corpuscular HGB CONC 33.4 g/dL (32.0-36.0); Mean Corpuscular Hemoglobin 30.1 pg (27.0-31.0); Mean Platelet Volume 9.5 fL (7.4-10.4); Monocytes 7 % (0-10); Neutrophil 52 % (42-75); Platelet Count 122 thou/uL (130-400); Platelet Morphology Comment Appears Decreased; RBC Distribution Width 13.2 % (11.5-14.5); Red Blood Cell (RBC) Count 4.27 mill/uL (4.70-6.10); White Blood Cell (WBC) Count 6.9 thou/uL (4.8-10.8)
[2019-11-30] MEDS ORDERED: Insulin Glargine 60 UNITS in Pre-Filled Syringe 1 EACH SC SCH (09:00)
[2019-11-30] MEDS ORDERED: LEVEMIR 60 UNIT SC SCH (09:00)
[2019-11-30] MEDS ORDERED: Lisinopril 10 MG TAB PO SCH (09:00)
[2019-11-30] MEDS ORDERED: PATIENT'S HOME MEDICATION PO SCH (09:00)
[2019-11-30] MEDS: Propafenone HCl 150 MG TAB PO SCH (09:20)
[2019-11-30] MEDS: Metoprolol Tartrate 25 MG TAB PO SCH ×2 (09:20→21:02)
[2019-11-30] MEDS: Gabapentin 300 MG CAP PO SCH ×3 (09:20→21:04)
[2019-11-30] MEDS: Aspirin 81 mg Enteric Coated Tablet PO SCH (09:20)
[2019-11-30] MEDS: metroNIDAZOLE 500 MG in Premix Bag 1 BAG IVPB SCH ×2 (09:21→17:43)
--- NOTE | 2019-11-30 13:46 | PDOC.HOSPP ---
- Subjective Encounter Date: 11/30/19 Encounter Time: 09:40 Subjective: pt ahd several episodes of diarrhea, deneis any CP this am. stool study sent for cdiff. Cr improved w.. hydration. - Objective Vital Signs & Weight: Vital Signs (12 hours) Temp Pulse Resp BP Pulse Ox 11/30/19 11:31 74 20 122/50 L 100 11/30/19 08:00 96 11/30/19 07:57 99.5 F 88 17 176/77 H 97 11/30/19 03:09 98.5 F 68 20 166/72 H 98 Weight Admit Weight 210 lb 2 oz Weight 209 lb I&O: 11/29/19 11/30/19 12/01/19 06:59 06:59 06:59 Intake Total 2070 Output Total 200 Balance 1870 Result Diagrams: 11/30/19 04:23 11/30/19 04:23 Additional Labs: Accuchecks 11/30/19 11/29/19 11:26 13:59 POC Glucose 140 H 170 H Hospitalist ROS - Medication Medications: Active Medications Generic Name Dose Route Start Last Admin Trade Name Freq PRN Reason Stop Dose Admin Acetaminophen 650 mg 11/29/19 10:57 11/30/19 09:21 Tylenol PO 650 mg Q4H PRN Administration Headache/Fever/Mild Pain (1-3) Aspirin 81 mg 11/30/19 09:00 11/30/19 09:20 Ecotrin PO 81 mg DAILY ISABELLE Administration Atorvastatin Calcium 10 mg 11/29/19 21:00 11/29/19 21:51 Lipitor PO 10 mg HS ISABELLE Administration Gabapentin 300 mg 11/29/19 15:00 11/30/19 09:20 Neurontin PO 300 mg TID ISABELLE Administration Metronidazole 500 mg/ Device 100 mls @ 100 mls/hr 11/29/19 16:00 11/30/19 09: 21 IVPB 100 mls 0800,1600,2359 ISABELLE Administration Ciprofloxacin/Dextrose 400 mg/ 200 mls @ 200 mls/hr 11/30/19 09:00 11/30/19 09:21 Device IVPB 200 mls Q12HR ISABELLE Administration Metoprolol Tartrate 12.5 mg 11/29/19 21:00 11/30/19 09:20 Lopressor PO 12.5 mg BID ISABELLE Administration Propafenone HCl 225 mg 11/30/19 09:00 11/30/19 09:20 Rythmol PO 225 mg DAILY ISABELLE Administration Rivaroxaban 20 mg 11/29/19 17:00 11/29/19 17:44 Xarelto PO 20 mg 1700 ISABELLE Administration - Exam General Appearance: NAD, awake alert Eye: PERRL ENT: normocephalic atraumatic Neck: supple Heart: RRR Respiratory: CTAB, normal chest expansion Gastrointestinal: soft, normal bowel sounds, no palpable masses Neurological: cranial nerve grossly intact, no focal deficits Psychiatric: A&O x 3 Hosp A/P - Plan Sigmoid diverticulitis cdiff colitis proctitis --IVF - CLD -- advance -cipor, flagyl IV and vanco PO --bl prem neg so far Aysm UTI - abx as above Abn.troponin- mismatch demand ischemia - echo and cardiology c/s placed Afib - rate cont'd w.. propoafenone and aC w.. xarelto MARTA Cr improved w.. hydration. Full code.
[2019-11-30] MEDS: Vancomycin HCl 25 MG/ML Oral PO SCH ×2 (15:07→21:01)
[2019-11-30] MEDS: Rivaroxaban 10 MG TAB PO SCH (17:44)
--- NOTE | 2019-11-30 19:14 | CON ---
DATE OF CONSULTATION: 11/30/2019 INDICATIONS FOR CONSULTATION: This is an 89-year-old gentleman with multiple medical problems, who was admitted with nausea and vomiting and elevated cardiac enzymes, which are actually trending downwards and is not felt to be indicative of myocardial infarction, but most likely is a type 2 NH due to stress-induced elevation. He also has a history of coronary artery disease and peripheral vascular disease. HISTORY OF PRESENT ILLNESS: This is a very unfortunate gentleman who is 89 years old, was seen by me last in 10/2018. I have only seen him a couple times in the office. He does have a long history of peripheral vascular disease and recently underwent what appears to be a femoropopliteal bypass in the left lower extremity. When I saw him, he already had multiple problems, which include hypercholesterolemia, hypertension, diabetes, and coronary artery disease. He had a normal stress test in 2012. He had an echocardiogram in 2011, which showed the ejection fraction to be about 60%. He has chronic atrial fibrillation. He had been seen previously by Dr. Washington, and had a stent placed in the left anterior descending artery in 2007. He had a permanent pacemaker placed also by Dr. Washington in 10/2013, this was a [employer] device. He has chronic atrial fibrillation. His last surgery for sure was a femoropopliteal bypass in [place] in 2018. Apparently, he continues to follow up also occasionally with his splicing technician or the surgeons in [place] for his peripheral vascular disease. At this time, he is not complaining of any chest pain or shortness of breath. He mainly complained of the nausea and vomiting. He also had a low-grade temperature. He has been evaluated for COVID. Apparently, the test has been negative thus far. PAST MEDICAL HISTORY: Significant for: 1. Diabetes. 2. Coronary artery disease. 3. Angioplasty and stent placement. 4. Chronic atrial fibrillation. 5. Pacemaker insertion. 6. Peripheral vascular disease. 7. Left femoropopliteal bypass. 8. Hypertension. 9. Hypercholesterolemia. MEDICATIONS: Prior to admission, include: 1. Aspirin. 2. Levemir 60 units a day. 3. Lisinopril 10 mg a day. 4. Gabapentin 300 mg 3 times a day. 5. Metformin 500 mg b.i.d. 6. Pravachol 40 mg q.p.m. 7. Propafenone 225 mg daily. 8. Xarelto 20 mg a day. 9. Metoprolol tartrate 12.5 mg, I think he was taking it b.i.d. ALLERGIES: NONE. FAMILY HISTORY: His brother had sudden cardiac . He has a son who had myocardial infarction. SOCIAL HISTORY: The patient smoked in the past, has been more than 10 or 15 years since he smoked. REVIEW OF SYSTEMS: GENERAL: He denied any weight gain or fevers. PULMONARY: He denied any pulmonary complaints, such as asthma, emphysema, bronchitis. He has been doing quite well he said, he has had no problems with breathing. GI: He complained of the nausea and vomiting. He has had no hematemesis. MUSCULOSKELETAL: He has had some lower extremity edema as well as some problems with DVTs in the past, I believe at least he has peripheral vascular disease. He has some reflex noted in I believe over the small saphenous veins. NEUROLOGICAL: The patient may be getting some dementia, but otherwise has been relatively stable. I believe he now most likely resides in the [facility]. PHYSICAL EXAMINATION: GENERAL: An elderly gentleman. VITAL SIGNS: Blood pressure 176/77, temperature is 99.5, heart rate was 88, respiratory rate 17, and O2 saturation 96%. HEENT: Head is normocephalic and atraumatic. Carotid pulses are present without any bruits. CARDIOVASCULAR: Regular rate and rhythm at this time. He is pacing 100% according to the telemetry monitoring and has underlying atrial fibrillation. There were no gross murmurs noted. LUNGS: Actually clear to auscultation. Did not hear any rales, rhonchi, or wheezing. ABDOMEN: He has no significant tenderness or masses that I could elicit. EXTREMITIES: Some discoloration to the lower extremities and I cannot palpate pedal pulses. He has well-healed surgical incisions after his femoropopliteal bypasses. I could palpate femoral and popliteal pulses. NEUROLOGIC: He appears to be relatively nonfocal as in the fact he was able to get out of the bed and go to the bathroom by using the IV pull. LABORATORY DATA: Sodium 135, potassium 4.5, BUN was 37, creatinine 1.36, blood sugar was 222, and AST was 59. His INR was 3.3. D-dimer was 1.47. Hemoglobin was 12.8, hematocrit 38.4, WBC of 6.9, and platelet count 122,000. Troponin I as noted above, on admission it was 0.5, is now decreased down to 0.22. EKG shows essentially a paced rhythm with occasional PVCs. IMPRESSION: 1. Elderly gentleman with nausea and vomiting of uncertain etiology. He has been tested thus far negative for COVID. He may need to undergo repeat testing, but otherwise he seems to be doing relatively well. I believe the CT scan did show some sigmoid diverticulitis as well as proctitis. 2. Chronic kidney disease. He has obvious some exacerbation of acute on chronic disease. We will need to continue with his fluids. 3. Normal ejection fraction in the past. Would advise a repeat echocardiogram for evaluation of left ventricular systolic function. 4. Coronary artery disease, appears to be stable at this time. He is not complaining of any chest pain. 5. History of chronic atrial fibrillation and pacemaker insertion, most likely due to sick sinus syndrome. The last time the pacemaker was interrogated was found to be functioning normally with his chronic atrial fibrillation. He was placed on Xarelto. If we need to hold this medication, then we can do so depending on what further workup or surgical procedures if any may be indicated. I will continue to follow the patient with you, but at this time, overall cardiac status despite his multiple problems appears to be stable. We will need to readjust his medications perhaps for his hypertension and we can assist in this if need be. Job ID: [id number]
[2019-11-30] MEDS: Atorvastatin Calcium 10 MG TAB PO SCH (21:02)
[2019-12-01] MEDS: metroNIDAZOLE 500 MG in Premix Bag 1 BAG IVPB SCH ×3 (01:35→16:24)
[2019-12-01] MEDS: Vancomycin HCl 25 MG/ML Oral PO SCH ×4 (01:38→21:48)
[2019-12-01] MEDS: hydrALAZINE 20 MG/ML VIAL SLOW IVP PRN (04:22)
[2019-12-01] MEDS: Propafenone HCl 150 MG TAB PO SCH (08:59)
[2019-12-01] MEDS: Metoprolol Tartrate 25 MG TAB PO SCH ×2 (09:00→22:15)
[2019-12-01] MEDS: Amlodipine 5 MG TAB PO SCH ×2 (09:00→22:15)
[2019-12-01] MEDS: Aspirin 81 mg Enteric Coated Tablet PO SCH (09:00)
[2019-12-01] MEDS: Gabapentin 300 MG CAP PO SCH ×3 (09:01→21:49)
--- NOTE | 2019-12-01 11:18 | PDOC.CPN ---
- Subjective Date: 12/01/19 Time: 11:27 Interval history: The pt seen and examined. No overnight events. No cardiac complaints. - Objective Allergies/Adverse Reactions: Allergies Allergy/AdvReac Type Severity Reaction Status Date / Time No Known Drug Allergies Allergy Verified 11/29/19 16:46 Visit Medications: Current Medications Acetaminophen (Tylenol) 650 mg PO Q4H PRN PRN Reason: Headache/Fever/Mild Pain (1-3) Last Admin: 11/30/19 09:21 Dose: 650 mg Amlodipine Besylate (Norvasc) 5 mg PO BID [facility] Last Admin: 12/01/19 09:00 Dose: 5 mg Aspirin (Ecotrin) 81 mg PO DAILY [facility] Last Admin: 12/01/19 09:00 Dose: 81 mg Atorvastatin Calcium (Lipitor) 10 mg PO HS [facility] Last Admin: 11/30/19 21:02 Dose: 10 mg Bisacodyl (Dulcolax) 10 mg PO DAILYPRN PRN PRN Reason: Constipation Dextrose/Water (Dextrose 50%) 25 gm SLOW IVP PRN PRN PRN Reason: Hypoglycemia Gabapentin (Neurontin) 300 mg PO TID [facility] Last Admin: 12/01/19 09:01 Dose: 300 mg Glucagon (Glucagon) 1 mg IM PRN PRN PRN Reason: Hypoglycemia Hydralazine HCl (Apresoline) 10 mg SLOW IVP Q4H PRN PRN Reason: SBP > 150 Last Admin: 12/01/19 04:22 Dose: 10 mg Dextrose/Water (D5w) 1,000 mls @ 0 mls/hr IV .Q0M PRN PRN Reason: Hypoglycemia Metronidazole 500 mg/ Device 100 mls @ 100 mls/hr IVPB 0800,1600,2359 [facility] Last Admin: 12/01/19 08:59 Dose: 100 mls Ciprofloxacin/Dextrose 400 mg/ (Device) 200 mls @ 200 mls/hr IVPB Q12HR [facility] Last Admin: 12/01/19 10:38 Dose: 200 mls Insulin Human Lispro (Humalog) 0 units SC .MODERATE SLIDING SC PRN PRN Reason: Moderate Correctional Scale Metoprolol Tartrate (Lopressor) 25 mg PO BID [facility] Last Admin: 12/01/19 09:00 Dose: 25 mg Ondansetron HCl (Zofran Odt) 4 mg PO Q6H PRN PRN Reason: Nausea/Vomiting Ondansetron HCl (Zofran) 4 mg IVP Q6H PRN PRN Reason: Nausea/Vomiting Last Admin: 12/01/19 09:00 Dose: 4 mg Tylenol With Codeine (#4 (300 Mg/60 Mg)) 1 each PO DAILY [facility] Propafenone HCl (Rythmol) 225 mg PO DAILY [facility] Last Admin: 12/01/19 08:59 Dose: 225 mg Rivaroxaban (Xarelto) 20 mg PO 1700 [facility] Last Admin: 11/30/19 17:44 Dose: 20 mg Senna/Docusate Sodium (Senokot S) 2 tab PO BIDPRN PRN PRN Reason: Constipation Sodium Chloride (Flush - Normal Saline) 10 ml IVF Q12HR [facility] Last Admin: 12/01/19 09:01 Dose: 10 ml Sodium Chloride (Flush - Normal Saline) 10 ml IVF PRN PRN PRN Reason: Saline Flush Vancomycin HCl (First Vancomycin) 125 mg PO Q6H [facility] Last Admin: 12/01/19 08:59 Dose: 125 mg Vital Signs & Weight: Vital Signs Temp Pulse Resp BP Pulse Ox 12/01/19 08:45 98.1 F 70 20 150/65 H 96 12/01/19 04:22 74 12/01/19 03:53 98.5 F 74 20 184/84 H 98 12/01/19 01:55 162/88 H Admit Weight 210 lb 2 oz Weight 204 lb - Physical Exam General: alert & oriented x3 Neck: supple neck Cardiac: irregularly regular Lungs: decreased breath sounds Extremities: other: (1-2+ pitting BLE edema) - Labs Result Diagrams: 11/30/19 04:23 11/30/19 04:23 Troponin/CKMB CK-MB (CK-2) 2.0 ng/mL (0-6.6) 11/29/19 08:08 Troponin I 0.220 ng/mL (< 0.028) H 11/29/19 15:01 - Telemetry Supraventricular conduction: atrial fibrillation - Assessment/Plan Assessment/Plan: 1. Hx of Sigmoid diverticulitis with C-deff - on Vanc 2. Aysmptomatic UTI - on ABX 3. CAD with hx of stent in LAD in 2007 - On Metoprolol, ASA, Statin, and Lisinopril 4. Chronic Afib - well controlled HR; On Metoprolol and Xarelto 5. PAD with hx of Lt femoropopliteal bypass [place] 6. [employer] PM in 2014 - Vpaced 7. HTN - Metoprolol was increased to 25mg BID 8. HLD - on Statin 9. MARTA on CKD - imporved MAR Reviewed Pt. seen and eval. by me. I agree with the A/P by the TIE IN MACHINE OPERATOR. The cardiac status is stable. No cardiac complaints. still some diarhea. chest clear.regular rhythm. Pacing. I will sign off. If any cardiac issues arise plese consult me again. [email or web address]
[2019-12-01] MEDS ORDERED: Sodium Chloride 0.9% 1,000 ML IV SCH (12:45)
[2019-12-01] MEDS: TYLENOL WITH CODEINE PO PRN (13:06)
[2019-12-01] MEDS: HumaLOG 300 UNITS/3 ML VIAL SC PRN ×2 (13:34→18:15)
--- NOTE | 2019-12-01 14:14 | PDOC.HOSPP ---
- Subjective Encounter Date: 12/01/19 Encounter Time: 10:20 Subjective: pt still has diarrhea. resting, talk to RN, will cw some more IV hydration. - Objective Vital Signs & Weight: Vital Signs (12 hours) Temp Pulse Resp BP Pulse Ox 12/01/19 13:14 97.6 F 72 20 136/60 96 12/01/19 08:45 98.1 F 70 20 150/65 H 96 12/01/19 04:22 74 12/01/19 03:53 98.5 F 74 20 184/84 H 98 Weight Admit Weight 210 lb 2 oz Weight 204 lb I&O: 11/30/19 12/01/19 12/02/19 06:59 06:59 06:59 Intake Total 2070 2798 Output Total 200 Balance 1870 2798 Result Diagrams: 11/30/19 04:23 11/30/19 04:23 Additional Labs: Accuchecks 12/01/19 12/01/19 11/30/19 13:23 05:39 21:54 POC Glucose 170 H 158 H 159 H 11/30/19 16:52 POC Glucose 131 H Hospitalist ROS - Medication Medications: Active Medications Generic Name Dose Route Start Last Admin Trade Name Freq PRN Reason Stop Dose Admin Acetaminophen 650 mg 11/29/19 10:57 11/30/19 09:21 Tylenol PO 650 mg Q4H PRN Administration Headache/Fever/Mild Pain (1-3) Amlodipine Besylate 5 mg 12/01/19 09:00 12/01/19 09:00 Norvasc PO 5 mg BID ISABELLE Administration Aspirin 81 mg 11/30/19 09:00 12/01/19 09:00 Ecotrin PO 81 mg DAILY ISABELLE Administration Atorvastatin Calcium 10 mg 11/29/19 21:00 11/30/19 21:02 Lipitor PO 10 mg HS ISABELLE Administration Gabapentin 300 mg 11/29/19 15:00 12/01/19 09:01 Neurontin PO 300 mg TID ISABELLE Administration Hydralazine HCl 10 mg 11/29/19 16:13 12/01/19 04:22 Apresoline SLOW IVP 10 mg Q4H PRN Administration SBP > 150 Metronidazole 500 mg/ Device 100 mls @ 100 mls/hr 11/29/19 16:00 12/01/19 08: 59 IVPB 100 mls 0800,1600,2359 ISABELLE Administration Ciprofloxacin/Dextrose 400 mg/ 200 mls @ 200 mls/hr 11/30/19 09:00 12/01/19 10:38 Device IVPB 200 mls Q12HR ISABELLE Administration Sodium Chloride 1,000 mls @ 100 mls/hr 12/01/19 12:45 12/01/19 13:06 Normal Saline 0.9% IV 12/01/19 22:44 1,000 mls .Q10H ISABELLE Administration Metoprolol Tartrate 25 mg 12/01/19 09:00 12/01/19 09:00 Lopressor PO 25 mg BID ISABELLE Administration Ondansetron HCl 4 mg 11/29/19 10:57 12/01/19 09:00 Zofran IVP 4 mg Q6H PRN Administration Nausea/Vomiting Tylenol With Codeine 1 each 12/01/19 09:00 12/01/19 13:06 #4 (300 Mg/60 Mg) PO 1 each TIDPRN PRN Administration Pain Propafenone HCl 225 mg 11/30/19 09:00 12/01/19 08:59 Rythmol PO 225 mg DAILY ISABELLE Administration Rivaroxaban 20 mg 11/29/19 17:00 11/30/19 17:44 Xarelto PO 20 mg 1700 ISABELLE Administration Sodium Chloride 10 ml 11/30/19 21:00 12/01/19 09:01 Flush - Normal Saline IVF 10 ml Q12HR ISABELLE Administration Vancomycin HCl 125 mg 11/30/19 14:00 12/01/19 13:06 First Vancomycin PO 125 mg Q6H ISABELLE Administration - Exam General Appearance: NAD, awake alert ENT: normocephalic atraumatic Neck: supple Heart: RRR Respiratory: CTAB, normal chest expansion Gastrointestinal: normal bowel sounds, no palpable masses Hosp A/P - Plan Sigmoid diverticulitis cdiff colitis proctitis --IVF - CLD -- advance -cipor, flagyl IV and vanco PO --bl prem neg so far Aysm UTI - abx as above Abn.troponin- mismatch demand ischemia - echo and cardiology c/s placed Afib - rate cont'd w.. propoafenone and aC w.. xarelto MARTA Cr improved w.. hydration. Full code. - it appears that cardiol has no recommendation -wcw med..therapy for elevated trop. -echo pending. paradoxical diarrhea, being on abx for diverticulitis po vanc for cdiff colitis. labs to monitor, - make sure cdiff not worsening, as he needs to be on iv abx for diverticulitis. dispo - pt lives at home. PT c/s for strength assessment.
[2019-12-01] MEDS: Rivaroxaban 10 MG TAB PO SCH (16:25)
[2019-12-01] MEDS: Atorvastatin Calcium 10 MG TAB PO SCH (21:49)
[2019-12-02] MEDS: metroNIDAZOLE 500 MG in Premix Bag 1 BAG IVPB SCH ×2 (00:57→08:50)
[2019-12-02] MEDS: Vancomycin HCl 25 MG/ML Oral PO SCH ×4 (02:25→20:51)
[2019-12-02 04:24] LABS: #Eosinphils 0.1 thou/uL (0.0-0.7); #Lymphocytes 1.4 thou/uL (1.20-3.40); #Monocytes 0.8 thou/uL (0.11-0.59); #Neutrophils 5.3 thou/uL (1.40-6.50); %Basophils 0.5 % (0.0-1.0); %Eosinophils 1.4 % (0.0-10.0); %Lymphocytes 18.7 % (21.0-51.0); %Monocytes 10.3 % (0.0-10.0); %Neutrophils 69.1 % (42.0-75.0); Hemoglobin 12.8 g/dL (14.0-18.0); Mean Corpuscular HGB CONC 32.5 g/dL (32.0-36.0); Mean Corpuscular Hemoglobin 29.2 pg (27.0-31.0); Mean Corpuscular Volume 89.9 fL (78.0-98.0); Mean Platelet Volume 8.6 fL (7.4-10.4); Platelet Count 165 thou/uL (130-400); RBC Distribution Width 13.1 % (11.5-14.5); Red Blood Cell (RBC) Count 4.38 mill/uL (4.70-6.10); White Blood Cell (WBC) Count 7.6 thou/uL (4.8-10.8)
[2019-12-02] MEDS: TYLENOL WITH CODEINE PO PRN (08:51)
[2019-12-02] MEDS: Propafenone HCl 150 MG TAB PO SCH (08:51)
[2019-12-02] MEDS: Metoprolol Tartrate 25 MG TAB PO SCH ×2 (08:52→20:52)
[2019-12-02] MEDS: Gabapentin 300 MG CAP PO SCH ×3 (08:52→20:52)
[2019-12-02] MEDS: Aspirin 81 mg Enteric Coated Tablet PO SCH (08:52)
[2019-12-02] MEDS: Amlodipine 5 MG TAB PO SCH ×2 (08:52→20:52)
[2019-12-02] MEDS: hydrALAZINE 20 MG/ML VIAL SLOW IVP PRN (09:27)
[2019-12-02] MEDS: HumaLOG 300 UNITS/3 ML VIAL SC PRN ×2 (11:03→17:03)
[2019-12-02 14:13] VITALS: BMI 32.6
--- NOTE | 2019-12-02 14:59 | PDOC.HOSPP ---
- Subjective Encounter Date: 12/02/19 Encounter Time: 10:40 Subjective: pt ahd 2 loos Bms otherwise, ok to advance the diet. Lives w.. and grandchildren. - Objective Vital Signs & Weight: Vital Signs (12 hours) Temp Pulse Pulse Pulse Resp BP BP 12/02/19 11:19 98.4 F 69 16 12/02/19 10:03 70 70 124/59 L 127/60 12/02/19 09:27 69 12/02/19 09:24 97.6 F 69 18 12/02/19 04:00 98.9 F 69 20 BP Pulse Ox 12/02/19 11:19 107/51 L 96 12/02/19 10:03 12/02/19 09:27 12/02/19 09:24 176/78 H 97 12/02/19 04:00 174/74 H 96 Weight Admit Weight 210 lb 2 oz Weight 202 lb 3.2 oz I&O: 12/01/19 12/02/19 12/03/19 06:59 06:59 06:59 Intake Total 2798 1080 Output Total 1000 Balance 2798 80 Result Diagrams: 12/02/19 03:59 11/30/19 04:23 Additional Labs: Accuchecks 12/02/19 12/02/19 12/01/19 10:36 05:50 20:37 POC Glucose 201 H 129 H 148 H 12/01/19 17:13 POC Glucose 193 H Hospitalist ROS - Medication Medications: Active Medications Generic Name Dose Route Start Last Admin Trade Name Freq PRN Reason Stop Dose Admin Acetaminophen 650 mg 11/29/19 10:57 11/30/19 09:21 Tylenol PO 650 mg Q4H PRN Administration Headache/Fever/Mild Pain (1-3) Amlodipine Besylate 5 mg 12/01/19 09:00 12/02/19 08:52 Norvasc PO 5 mg BID ISABELLE Administration Aspirin 81 mg 11/30/19 09:00 12/02/19 08:52 Ecotrin PO 81 mg DAILY ISABELLE Administration Atorvastatin Calcium 10 mg 11/29/19 21:00 12/01/19 21:49 Lipitor PO 10 mg HS ISABELLE Administration Gabapentin 300 mg 11/29/19 15:00 12/02/19 08:52 Neurontin PO 300 mg TID ISABELLE Administration Hydralazine HCl 10 mg 11/29/19 16:13 07/15/20 09:27 Apresoline SLOW IVP 10 mg Q4H PRN Administration SBP > 150 Metronidazole 500 mg/ Device 100 mls @ 100 mls/hr 11/29/19 16:00 12/02/19 08: 50 IVPB 100 mls 0800,1600,2359 ISABELLE Administration Ciprofloxacin/Dextrose 400 mg/ 200 mls @ 200 mls/hr 11/30/19 09:00 12/02/19 08:50 Device IVPB 200 mls Q12HR ISABELLE Administration Insulin Human Lispro 0 units 11/29/19 11:00 12/02/19 11:03 Humalog SC 4 unit .MODERATE SLIDING SC PRN Administration Moderate Correctional Scale Metoprolol Tartrate 25 mg 12/01/19 09:00 12/02/19 08:52 Lopressor PO 25 mg BID ISABELLE Administration Ondansetron HCl 4 mg 11/29/19 10:57 12/01/19 09:00 Zofran IVP 4 mg Q6H PRN Administration Nausea/Vomiting Tylenol With Codeine 1 each 12/01/19 09:00 12/02/19 08:51 #4 (300 Mg/60 Mg) PO 1 each TIDPRN PRN Administration Pain Propafenone HCl 225 mg 11/30/19 09:00 12/02/19 08:51 Rythmol PO 225 mg DAILY ISABELLE Administration Rivaroxaban 20 mg 11/29/19 17:00 12/01/19 16:25 Xarelto PO 20 mg 1700 ISABELLE Administration Sodium Chloride 10 ml 11/30/19 21:00 12/02/19 08:52 Flush - Normal Saline IVF 10 ml Q12HR ISABELLE Administration Vancomycin HCl 125 mg 11/30/19 14:00 12/02/19 08:51 First Vancomycin PO 125 mg Q6H ISABELLE Administration - Exam General Appearance: NAD, awake alert Eye: PERRL ENT: normocephalic atraumatic Neck: supple Heart: RRR, normal peripheral pulses Respiratory: CTAB, normal chest expansion Gastrointestinal: soft, normal bowel sounds Neurological: no focal deficits Hosp A/P - Plan Sigmoid diverticulitis cdiff colitis proctitis --IVF - CLD -- advance -cipor, flagyl IV and vanco PO --bl prem neg so far Aysm UTI - abx as above Abn.troponin- mismatch demand ischemia - echo and cardiology c/s placed Afib - rate cont'd w.. propoafenone and aC w.. xarelto MARTA Cr improved w.. hydration. Full code. - it appears that cardiol has no recommendation -wcw med..therapy for elevated trop. -echo pending. paradoxical diarrhea, being on abx for diverticulitis po vanc for cdiff colitis. labs to monitor, - make sure cdiff not worsening, as he needs to be on iv abx for diverticulitis. dispo - pt lives at home w... and grandchildren PT c/s for strength assessment. -15th advance the diet will switch to PO abx -if stable, plan for dc home in am.
[2019-12-02] MEDS: metroNIDAZOLE 500 MG TAB PO SCH ×2 (15:48→20:52)
[2019-12-02] MEDS: Rivaroxaban 10 MG TAB PO SCH (15:48)
[2019-12-02] MEDS: Ciprofloxacin 500 MG TAB PO SCH (20:51)
[2019-12-02] MEDS: Atorvastatin Calcium 10 MG TAB PO SCH (20:52)
[2019-12-03] MEDS: Vancomycin HCl 25 MG/ML Oral PO SCH ×2 (01:15→08:47)
[2019-12-03] MEDS: Ciprofloxacin 500 MG TAB PO SCH (06:03)
[2019-12-03 06:43] LABS: Hemoglobin 13.4 g/dL (14.0-18.0); Platelet Count 172 thou/uL (130-400)
[2019-12-03 07:02] LABS: Anion Gap 12 mmol/L (10-20); BUN (Urea Nitrogen) 12 mg/dL (8.4-25.7); Calc. Creatinine Clearance 85 mL/min (70-130); Calcium 8.3 mg/dL (7.8-10.44); Carbon Dioxide 19 mmol/L (23-31); Chloride 110 mmol/L (98-107); Estimated GFR-MDRD Greater than 90; Glucose 112 mg/dL (83-110); Potassium 3.1 mmol/L (3.5-5.1); Sodium 138 mmol/L (136-145)
[2019-12-03 07:54] VITALS: BP 165/76; TEMP 97.6
[2019-12-03] MEDS: Metoprolol Tartrate 25 MG TAB PO SCH (08:46)
[2019-12-03] MEDS: metroNIDAZOLE 500 MG TAB PO SCH (08:46)
[2019-12-03] MEDS: Amlodipine 5 MG TAB PO SCH (08:46)
[2019-12-03] MEDS: Gabapentin 300 MG CAP PO SCH (08:46)
[2019-12-03] MEDS: Aspirin 81 mg Enteric Coated Tablet PO SCH (08:46)
[2019-12-03] MEDS: Propafenone HCl 150 MG TAB PO SCH (08:47)
[2019-12-03] MEDS ORDERED: Potassium Citrate 10 MEQ TAB PO SCH (09:00)
--- NOTE | 2019-12-03 12:35 | DIS ---
DATE OF ADMISSION: 11/29/2019 DATE OF DISCHARGE: 12/03/2019 DISCHARGE DIAGNOSES: 1. Sigmoid diverticulitis and stercoral proctitis. 2. Acute kidney injury. 3. Abnormal troponin, metabolic mismatch, type 2 demand ischemia. 4. Proteinuria. 5. Asymptomatic urinary tract infection. 6. COVID negative. 7. Clostridium difficile colitis. PHYSICAL EXAMINATION: VITAL SIGNS: On the day of discharge, temperature 97.6, pulse 69, blood pressure is 157/70, and saturating 99% on room air. GENERAL: He is alert and oriented. He is ambulating in the room without any shortness of breath. His abdominal pain was resolved. CARDIOVASCULAR: Regular rate and rhythm without murmurs, rubs, or gallops. LUNGS: Clear to auscultation bilaterally without wheezing, rales, or rhonchi. ABDOMEN: Soft, nontender, nondistended. Good bowel sounds. HOSPITAL COURSE: An 89-year-old male with a history of hypertension, type 2 diabetes mellitus, peripheral vascular disease, chronic kidney disease stage 3, anticoagulation with Xarelto, presented with lower abdominal pain. CT abdomen showed sigmoid diverticulosis as well as proctocolitis. The patient also had abnormal troponin, and Cardiology felt this probably related to demand ischemia. EKG showed T inversions in the lateral leads, and his troponin was initially 0.5. He did have INR of 3.1. The patient was admitted with sigmoid diverticulitis management with Cipro and Flagyl IV. His electrolytes were replaced, and his kidney injury secondary to dehydration was improved. For his demand ischemia, no aggressive cardiac intervention. He had several episodes of diarrhea, probably related to the antibiotic use. Clostridium difficile was positive. So , he was given Flagyl to counteract the antibiotic-induced Clostridium difficile colitis. His bowel movements were normalized. Physical Therapy evaluated him. The patient lives with and grandchildren. The patient is tolerating his regular diet, and he is clinically sound enough to be going home. His blood and urine cultures were negative. DISCHARGE MEDICATIONS: 1. Xarelto 20 mg daily. 2. Gabapentin 300 mg twice a day. 3. Lopressor 12.5 mg twice a day. 4. Pravastatin 40 mg at bedtime. 5. Lisinopril 20 mg daily. 6. Flagyl 500 mg three times a day for 5 days. 7. Vancomycin 125 mg q.6 for another 5 days. 8. Cipro 500 mg twice a day for 5 days. DISCHARGE INSTRUCTIONS: ACTIVITY: As tolerated. DIET: Regular diet. FOLLOWUP: Follow up with PCP in 1 week. TIME SPENT: Discharge time took over 35 minutes. Job ID: [id number] MTDD
== END 2019-12-03 11:10 | disposition home or self-care (01) | DRG 392 ==
LOC: ERS 06:35 → ERHOLD 11:04 → 2NO 16:16 → T4-A 12-02 18:07
PROVIDERS: ADMIT Internal Medicine; ATTEND Internal Medicine
PROC: 8E0ZXY6 Isolation (ICD-10-PCS; principal; 2019-11-30)
DX: K57.32 Diverticulitis of large intestine without perforation or abscess without bleeding (principal); N17.9 Acute kidney failure, unspecified; N39.0 Urinary tract infection, site not specified; Z20.828 Contact with and (suspected) exposure to other viral communicable diseases; I24.8 Other forms of acute ischemic heart disease; A04.72 Enterocolitis due to Clostridium difficile, not specified as recurrent; I48.20 Chronic atrial fibrillation, unspecified; R80.9 Proteinuria, unspecified; E11.22 Type 2 diabetes mellitus with diabetic chronic kidney disease; N18.3 Chronic kidney disease, stage 3 (moderate); E86.0 Dehydration; I12.9 Hypertensive chronic kidney disease with stage 1 through stage 4 chronic kidney disease, or unspecified chronic kidney disease; I73.9 Peripheral vascular disease, unspecified; K62.89 Other specified diseases of anus and rectum; I08.1 Rheumatic disorders of both mitral and tricuspid valves; T36.95XA Adverse effect of unspecified systemic antibiotic, initial encounter; E78.00 Pure hypercholesterolemia, unspecified; Z95.5 Presence of coronary angioplasty implant and graft; Z79.4 Long term (current) use of insulin
CPT/HCPCS: 36415; 36416; 51701; 71045; 74177; 80048; 80053; 81003; 81015; 82553; 82565; 83605; 84484; 85007; 85014; 85018; 85025; 85027; 85049; 85379; 85610; 85730; 87040; 87086; 87324; 87449; 87493; 93005; 96361; 96365; 96375; J0360; J0744; J2405; J2543; J3490; Q9967; U0002

== ENCOUNTER 2020-02-13 12:54 | Inpatient (IN) | payer MEDICARE, OTHER ==
[2020-02-13 13:52] LABS: #Lymphocytes 1.6 thou/uL (1.20-3.40); #Monocytes 1.3 thou/uL (0.11-0.59); #Neutrophils 9.8 thou/uL (1.40-6.50); %Basophils 0.2 % (0.0-1.0); %Eosinophils 0.3 % (0.0-10.0); %Lymphocytes 12.4 % (21.0-51.0); %Monocytes 10.5 % (0.0-10.0); %Neutrophils 76.7 % (42.0-75.0); Hemoglobin 15.9 g/dL (14.0-18.0); Mean Corpuscular Hemoglobin 30.9 pg (27.0-31.0); Mean Corpuscular Volume 90.7 fL (78.0-98.0); Mean Platelet Volume 9.1 fL (7.4-10.4); Platelet Count 254 thou/uL (130-400); RBC Distribution Width 13.2 % (11.5-14.5); Red Blood Cell (RBC) Count 5.15 mill/uL (4.70-6.10); White Blood Cell (WBC) Count 12.8 thou/uL (4.8-10.8)
[2020-02-13] MEDS ORDERED: Promethazine HCl 25 MG/ML VIAL ONE ×2 (13:56→14:33)
--- NOTE | 2020-02-13 14:00 | RAD ---
CHEST ONE VIEW: 02/14/20 INDICATION: History of nausea and vomiting. COMPARISON: Prior exam dated 11/29/19. FINDINGS: There is stable cardiomegaly. There is retained shot involving the chest wall. There is stable pacema ker overlying the left chest wall. No pleural effusion, pneumothorax evident. No acute osseous abnorm ality is evident. IMPRESSION: No acute abnormality. POS: BH
[2020-02-13 14:18] LABS: ALT (SGPT) 31 U/L (8-55); AST (SGOT) 20 U/L (5-34); Albumin 3.6 g/dL (3.4-4.8); Alkaline Phosphatase 119 U/L (40-110); Anion Gap 20 mmol/L (10-20); BUN (Urea Nitrogen) 27 mg/dL (8.4-25.7); Bilirubin, Total 2.2 mg/dL (0.2-1.2); Calc. Creatinine Clearance 0 mL/min (70-130); Calcium 8.6 mg/dL (7.8-10.44); Carbon Dioxide 19 mmol/L (23-31); Chloride 99 mmol/L (98-107); Estimated GFR-MDRD 29; Glucose 290 mg/dL (83-110); Lipase 4 U/L (8-78); Potassium 4.5 mmol/L (3.5-5.1); Protein, Total 6.6 g/dL (5.8-8.1); Sodium 133 mmol/L (136-145)
[2020-02-13] MEDS ORDERED: Promethazine 25 MG TAB ONE (14:32)
--- NOTE | 2020-02-13 15:41 | CT ---
CT OF THE ABDOMEN AND PELVIS WITHOUT CONTRAST: 02/13/20 INDICATION: History of nausea and vomiting. COMPARISON: Prior exam dated 11/29/19. FINDINGS: Small bilateral pleural effusion with bibasilar atelectasis. There is mild intrahepatic biliary ductal dilatation and cholecystectomy change which is stable. The visualized pancreas, adrenal glands and spleen appear unremarkable appearing. No renal or ureteral ca lculus is evident. Moderate calcifications seen involving the abdominal and pelvic vasculature. There is persistent wall thickening involving the sigmoid colon with scattered colic diverticula whic h may reflect underlying changes of mild diverticulitis. No free fluid is evident. There is diffuse osteopenia. There is scattered degenerative and osteoarthritic change. No definite a cute osseous abnormality is evident. IMPRESSION: 1. Underdistention of the colon but there is mild perceived wall thickening involving the sigmoi d colon with some inflammatory stranding suspicious for a sigmoid diverticulitis. No drainable fluid collection is evident. 2. Small bilateral pleural effusions and bibasilar atelectasis. 3. Other chronic findings as above. POS: BH
[2020-02-13 15:54] LABS: Bacteria/HPF None Seen HPF (None Seen); Bilirubin Negative (Negative); Blood, Urine Negative (Negative); Clarity Turbid (Clear); Glucose, Urine (Dipstick) 50 mg/dL (Negative); Ketone, Urine Negative (Negative); Leukocyte Negative Leu/uL (Negative); Nitrite Negative (Negative); Protein, Urine (Dipstick) 70 mg/dL (Neg-Trace); RBC/HPF 0-3 HPF (0-3); Specific Gravity, Urine 1.022 (1.002-1.036); Squamous Epithelial 0-3 HPF (0-3); Urobilinogen Normal mg/dL (Less than 2); WBC/HPF 0-3 HPF (0-3)
[2020-02-13] MEDS ORDERED: cefTRIAXone\\ROCEPHIN 1 GM VIAL ONE (15:59)
--- NOTE | 2020-02-13 17:09 | PDOC.HHP ---
Hospitalist HPI - History of Present Illness Nausea and vomiting History of Present Illness: This is an 89-year-old male patient CKD stage III, peripheral vascular disease with femoropopliteal bypass on Xarelto, hypertension who presents with a 2-day history of abdominal pain nausea and vomiting. Of note patient was recently seen here and discharged after having been treated for sigmoid diverticulitis and stercoral proctitis on 12/03/2019 He notes that he started having abdominal pain a couple of days ago which has however since resolved after he placed heating pads on his stomach. However he developed ongoing nausea and vomiting and weakness that led him to come to the ED today. Was brought in by his son. He denies any cough chest pain or shortness of breath. He denies any diarrhea or constipation. Denies any dysuria no frequency. At presentation he had a diffuse maculopapular rash on his body which was present since a day ago and itchy. He notes they started after he took medicine for his nausea however cannot remember the name. At presentation He had a leukocytosis of 12.8, and creatinine elevated at 2.17 from a baseline of 0.78 on 11/23/2019. CT scan was concerning for diverticul itishe was started on ceftriaxone and metronidazole.He also received 2 L of normal saline and promethazine injection Hospitalist team was consulted for admission. Hospitalist ROS - Review of Systems Constitutional: denies: fever, chills, sweats Respiratory: denies: cough, shortness of breath, hemoptysis, SOB with excertion Gastrointestinal: reports: nausea, vomiting, abdominal pain. denies: diarrhea, constipation Genitourinary: denies: dysuria, frequency, incontinence Neurological: denies: weakness, numbness, incoordination - Medication Medications: Medications: Gabapentin 300 mg twice daily Pravastatin 40 mg daily Liver RoxyBond 20 mg daily Lisinopril 20 mg daily Metoprolol 12.5 mg twice daily. Allergies: Ondansetron Hospitalist History - Past Medical History Other Medical History: CKD stage III, peripheral vascular disease, hypertension - Past Surgical History Other Surgical History: Left big toe amputation, - Family History Family History: reports: diabetes mellitus, hypertension - Social History Smoking Status: Former smoker Other Social History: Lives with his . Former smoker. Does not drink alcohol. - Exam General - other findings: Patient was in bed, no acute distress. Heart - other findings: S1-S2 present normal. No murmurs gallops or rubs. Respiratory - other findings: Currently adequate bilaterally. No rhonchi or rales. Gastrointestinal - other findings: Soft, nontender, nondistended. Bowel sounds present. Extremities - other findings: Left big toe amputated. Bilateral edema 1+ Neurological: cranial nerve grossly intact, no new deficit Psychiatric: A&O x 3 Hospitalist Results - Labs Result Diagrams: 02/13/20 13:37 02/13/20 13:37 Lab results: WBC 12.8 thou/uL (4.8-10.8) H 02/13/20 13:37 Hgb 15.9 g/dL (14.0-18.0) 02/13/20 13:37 Hct 46.7 % (42.0-52.0) 02/13/20 13:37 MCV 90.7 fL (78.0-98.0) 02/13/20 13:37 Plt Count 254 thou/uL (130-400) 02/13/20 13:37 Neutrophils % 76.7 % (42.0-75.0) H 02/13/20 13:37 Sodium 133 mmol/L (136-145) L 02/13/20 13:37 Potassium 4.5 mmol/L (3.5-5.1) 02/13/20 13:37 Chloride 99 mmol/L (98-107) 02/13/20 13:37 Carbon Dioxide 19 mmol/L (23-31) L 02/13/20 13:37 BUN 27 mg/dL (8.4-25.7) H 02/13/20 13:37 Creatinine 2.17 mg/dL (0.7-1.3) H 02/13/20 13:37 Glucose 290 mg/dL (83-110) H 02/13/20 13:37 Calcium 8.6 mg/dL (7.8-10.44) 02/13/20 13:37 Total Bilirubin 2.2 mg/dL (0.2-1.2) H 02/13/20 13:37 AST 20 U/L (5-34) 02/13/20 13:37 ALT 31 U/L (8-55) 02/13/20 13:37 Alkaline Phosphatase 119 U/L (40-110) H 02/13/20 13:37 Troponin I 0.011 ng/mL (< 0.028) 02/13/20 13:37 Serum Total Protein 6.6 g/dL (5.8-8.1) 02/13/20 13:37 Albumin 3.6 g/dL (3.4-4.8) 02/13/20 13:37 Lipase 4 U/L (8-78) L 02/13/20 13:37 Urine Ketones Negative mg/dL (Negative) 02/13/20 15:44 Urine Blood Negative (Negative) 02/13/20 15:44 Urine Nitrite Negative (Negative) 02/13/20 15:44 Ur Leukocyte Esterase Negative Christian/uL (Negative) 02/13/20 15:44 Urine RBC 0-3 HPF (0-3) 02/13/20 15:44 Urine WBC 0-3 HPF (0-3) 02/13/20 15:44 Ur Squamous Epith Cells 0-3 HPF (0-3) 02/13/20 15:44 Urine Bacteria None Seen HPF (None Seen) 02/13/20 15:44 Hospitalist H&P A/P - Plan Plan: This is an 89-year-old male patient with a history of peripheral vascular disease, hypertension and diabetes mellitus presenting with abdominal pain nausea and vomiting of [address] scan is concerning for diverticulitis which would be recurrent. Is been admitted for antibiotic therapy and GI evaluation. Diverticulitis Likely recurrent Continue metronidazole and ceftriaxone GI consult in a.m. Peripheral vascular disease Status post femoral shunt We will continue on Xarelto Small bilateral pleural effusion Noted on CT scan Possibly due to heart failurehas cardiomegaly Last echo showed EF 50 to 55% with restrictive filling pattern02/06/2019 Consider repeating echo in a.m. Cardiomegaly Stable Diffuse osteopenia Consider assessing for osteoporosis after acute events MARTA Creatinine increased to 2.175 baseline of 0.78 about 2 months ago. Likely prerenal from vomiting Received IV fluids Repeat BMP a.m. Consult nephrology if worsens. Diabetes mellitus Continue standard correctional dose insulin Not on home insulin. Hypertension Hold home lisinopril on account of MARTA Blood pressure stable for nowmonitor VTE prophylaxistherapeutic on Xarelto CODE STATUSfull code
[2020-02-13] MEDS ORDERED: metroNIDAZOLE 500 MG/100 ML BAG ONE (17:16)
[2020-02-13] MEDS ORDERED: HumaLOG 300 UNITS/3 ML VIAL SC PRN (19:02)
[2020-02-13] MEDS ORDERED: Dextrose 50% Abboject 50 ML SYRINGE SLOW IVP PRN (19:02)
[2020-02-13] MEDS ORDERED: Dextrose 5% in Water 1,000 ML IV PRN (19:02)
[2020-02-13] MEDS: Sodium Chloride 0.9% 1,000 ML IV SCH (19:03)
[2020-02-13 19:10] LABS: Creatinine, Urine 245.17 mg/dL (63-166)
[2020-02-13] MEDS ORDERED: diphenhydrAMINE 25 MG CAP PO SCH (19:15)
[2020-02-13 19:48] VITALS: BMI 32.1
[2020-02-13] MEDS ORDERED: Promethazine 25 MG TAB PO PRN (21:43)
[2020-02-13] MEDS: Promethazine HCl 25 MG/ML VIAL IM PRN (21:53)
[2020-02-13] MEDS ORDERED: metroNIDAZOLE 500 MG in Premix Bag 1 BAG IVPB SCH (22:00)
[2020-02-14] MEDS: metroNIDAZOLE 500 MG in Premix Bag 1 BAG IVPB SCH ×2 (01:00→09:15)
[2020-02-14] MEDS: Sodium Chloride 0.9% 1,000 ML IV SCH (01:01)
[2020-02-14 03:55] LABS: #Eosinphils 0.1 thou/uL (0.0-0.7); #Lymphocytes 1.4 thou/uL (1.20-3.40); #Monocytes 0.8 thou/uL (0.11-0.59); #Neutrophils 6.3 thou/uL (1.40-6.50); %Eosinophils 1.6 % (0.0-10.0); %Lymphocytes 16.4 % (21.0-51.0); %Neutrophils 73.1 % (42.0-75.0); Hemoglobin 13.9 g/dL (14.0-18.0); Mean Corpuscular HGB CONC 34.9 g/dL (32.0-36.0); Mean Corpuscular Hemoglobin 31.4 pg (27.0-31.0); Mean Corpuscular Volume 90.1 fL (78.0-98.0); Mean Platelet Volume 8.9 fL (7.4-10.4); Platelet Count 200 thou/uL (130-400); RBC Distribution Width 13.1 % (11.5-14.5); Red Blood Cell (RBC) Count 4.43 mill/uL (4.70-6.10); White Blood Cell (WBC) Count 8.7 thou/uL (4.8-10.8)
[2020-02-14 04:13] LABS: Anion Gap 16 mmol/L (10-20); BUN (Urea Nitrogen) 32 mg/dL (8.4-25.7); Calc. Creatinine Clearance 41 mL/min (70-130); Calcium 7.9 mg/dL (7.8-10.44); Carbon Dioxide 19 mmol/L (23-31); Chloride 105 mmol/L (98-107); Estimated GFR-MDRD 42; Glucose 226 mg/dL (83-110); Potassium 3.8 mmol/L (3.5-5.1); Sodium 136 mmol/L (136-145)
[2020-02-14] MEDS: Promethazine HCl 25 MG/ML VIAL IM PRN (05:30)
[2020-02-14] MEDS: HumaLOG 300 UNITS/3 ML VIAL SC PRN (05:34)
[2020-02-14] MEDS: Gabapentin 300 MG CAP PO SCH ×2 (08:54→20:14)
[2020-02-14] MEDS: Labetalol HCl 100 MG/20 ML VIAL SLOW IVP PRN (08:55)
[2020-02-14] MEDS ORDERED: diphenhydrAMINE 12.5 MG/5 ML UDCUP PO SCH (09:30)
[2020-02-14] MEDS ORDERED: diphenhydrAMINE 25 MG CAP PO PRN (09:56)
--- NOTE | 2020-02-14 10:47 | PDOC.HOSPP ---
- Subjective Encounter Date: 02/14/20 Encounter Time: 08:00 Subjective: no overnight events. this morning, feels better overall, vomited twice, per nurse bile-looking vomit. Endorses rash that developed after admission, face, abdomen, and thighs, pruritic. otherwise no complaints. - Objective Vital Signs & Weight: Vital Signs (12 hours) Temp Pulse Resp BP BP Pulse Ox 02/14/20 08:55 75 175/73 H 02/14/20 07:53 98.4 F 75 16 172/73 H 95 02/14/20 06:27 160/70 H 02/14/20 05:43 97.9 F 71 16 185/79 H 97 02/13/20 23:24 97.5 F L 70 16 160/67 H 98 Weight Weight 199 lb 6 oz I&O: 02/13/20 02/14/20 02/15/20 06:59 06:59 06:59 Intake Total 1740 Balance 1740 Result Diagrams: 02/14/20 03:16 02/14/20 03:16 Additional Labs: Accuchecks 02/13/20 02/13/20 20:11 13:50 POC Glucose 214 H 275 H Hospitalist ROS - Review of Systems Constitutional: denies: chills, sweats Respiratory: denies: cough, shortness of breath, pleuritic pain Cardiovascular: denies: chest pain, palpitations, orthopnea Gastrointestinal: denies: nausea, vomiting, abdominal pain, diarrhea, melena, hematochezia - Medication Medications: Active Medications Generic Name Dose Route Start Last Admin Trade Name Freq PRN Reason Stop Dose Admin Gabapentin 300 mg 02/14/20 09:00 02/14/20 08:54 Gabapentin 300 Mg Cap PO 300 mg BID ISABELLE Administration Sodium Chloride 1,000 mls @ 100 mls/hr 02/13/20 17:30 02/14/20 01:01 Normal Saline 0.9% IV 1,000 mls .Q10H ISABELLE Administration Insulin Human Lispro 0 units 02/13/20 19:02 02/14/20 05:34 Humalog 300 Units/3 Ml Vial SC 3 unit .MILD SLIDING SCALE PRN Administration Mild Correctional Scale Labetalol HCl 10 mg 02/14/20 08:19 02/14/20 08:55 Labetalol Hcl 100 Mg/20 Ml Vial SLOW IVP 10 mg Q4H PRN Administration BP > 160/100 Promethazine HCl 12.5 mg 02/13/20 21:43 02/14/20 05:30 Promethazine Hcl 25 Mg/Ml Vial IM 12.5 mg Q4H PRN Administration Nausea/Vomiting - Exam General Appearance: NAD, awake alert Neck: no JVD Heart: RRR, no murmur, no gallops, no rubs Respiratory: CTAB, no wheezes, no rales, no ronchi Gastrointestinal: soft, non-tender, non-distended, normal bowel sounds Extremities: 1+ LE edema Skin - other findings: maculopapular rash on abdomen, knees (more confluent) Psychiatric: normal affect, normal behavior, A&O x 3 Hosp A/P - Plan This is an 89-year-old male patient with a history of peripheral vascular disease, hypertension and diabetes mellitus presenting with abdominal pain nausea and vomiting of [address] scan is concerning for diverticulitis which would be recurrent. Is been admitted for antibiotic therapy and GI evaluation. Diverticulitis Likely recurrent stopped metronidazole and ceftriaxone due to drug eruption; started zosyn pending GI evaluation #drug eruption maculopapular rash that started after admission -stop rocephin and flagyl; start zosyn -benadryl PRN itching MARTA prerenal based on FeNa; improving with IVF Peripheral vascular disease Status post femoral shunt continue xarelto Small bilateral pleural effusion Noted on CT scan Possibly due to heart failurehas cardiomegaly Last echo showed EF 50 to 55% with restrictive filling pattern02/06/2019 Consider repeating echo in a.m. Cardiomegaly Stable Diffuse osteopenia Consider assessing for osteoporosis after acute events Diabetes mellitus Continue standard correctional dose insulin Not on home insulin. Hypertension labetalol PRN pending resolution of MARTA VTE prophylaxistherapeutic on Xarelto CODE STATUSfull code
[2020-02-14] MEDS ORDERED: Piperacillin/Tazobactam 3.375 GM in Sodium Chloride 0.9% 100 ML IVPB SCH (12:00)
[2020-02-14 12:23] LABS: SARS-CoV-2 MS2 Positive; SARS-CoV-2 N Gene Negative; SARS-CoV-2 S Gene Negative; SARS-CoV-2 by NAA Not Detected (NotDetected); SARS-CoV-2 orf1ab Negative
[2020-02-14] MEDS: Piperacillin/Tazobactam 2.25 GM in Sodium Chloride 0.9% 100 ML IVPB SCH ×3 (12:49→23:28)
[2020-02-14] MEDS: Sodium Bicarbonate 150 MEQ in Dextrose 5% in Water 1,000 ML IV SCH (12:49)
--- NOTE | 2020-02-14 13:43 | CON ---
DATE OF CONSULTATION: 02/14/2020 REQUESTING PHYSICIAN: Dr. Lozano. REASON FOR CONSULTATION: Recurrent diverticulitis. HISTORY OF PRESENT ILLNESS: Travis Sotomayor is an 89-year-old gentleman, who was admitted to the hospital yesterday with complaints of nausea, vomiting, and dehydration. He has a history significant for severe peripheral vascular disease and chronic kidney disease, stage 3. He has had a fem-popliteal bypass. He was recently hospitalized here a couple of months ago in November and treated for sigmoid diverticulitis and stercoral proctitis based on CT appearance. He also had C difficile testing, which showed positive antigen though negative toxin and received oral vancomycin with this as well. He states that he had been having some abdominal pain a few days ago, which has since resolved, but he has also been experiencing just reduction in appetite and ongoing nausea. He has had a few episodes of nonbloody emesis, though none so far this morning. Mainly, he just says his appetite is not great. He is not having any current abdominal pain. Upon presentation, he did have a bump in creatinine up to 2.17 and also leukocytosis with WBC 12.8. A CT of the abdomen and pelvis demonstrated some persistent wall thickening in the sigmoid colon with some inflammatory stranding in an area of scattered diverticulosis which is consistent with probable mild diverticulitis. There is no evidence of any fluid collection. The previously noted changes of inflammatory stranding around the rectum had resolved. The patient was started on IV Flagyl and ceftriaxone. He is currently sleeping comfortably, otherwise feeling well. Again, just saying he has not poor appetite. REVIEW OF SYSTEMS: Full review of systems including constitutional, head, eyes, ears, nose, throat, GI, , cardiovascular, respiratory, musculoskeletal, neurologic systems is negative except as noted in the HPI. PAST MEDICAL HISTORY: Pacemaker placement; coronary artery disease with stent placement; femoral-popliteal bypass; peripheral vascular disease; chronic kidney disease, stage 3; atrial fibrillation; diabetes; hypertension; hyperlipidemia; arthritis; cholecystectomy; appendectomy; left-sided colonic diverticulosis per last colonoscopy in April 2016; colon polyps with tubular adenomas removed in April 2016; duodenitis per EGD in April 2016; reflux esophagitis per EGD in April 2016. ALLERGIES: ONDANSETRON. OUTPATIENT MEDICATIONS: 1. Xarelto 20 mg daily. 2. Pravastatin. 3. Metoprolol. 4. Lisinopril. 5. Gabapentin. SOCIAL HISTORY: He is a former smoker. He does not drink alcohol. FAMILY HISTORY: Positive for diabetes and hypertension. PHYSICAL EXAMINATION: VITAL SIGNS: Temperature 98.4, pulse 75, blood pressure 175/73, 95% oxygen saturation on room air. GENERAL: Frail 89-year-old man, lying in bed comfortably, in no distress. He is somnolent, but easily arousable. MENTAL: He is easily arousable. He is oriented to person and place. He is able to give details about current symptoms. SKIN: No jaundice. No rashes were palpable. EYES: No scleral icterus. Extraocular movements intact. ENT: Mucous membranes moist. No oral lesions. LYMPH: No submandibular or supraclavicular lymphadenopathy. THYROID: Nontender to palpation. HEART: Regular rate and rhythm. LUNGS: Clear to auscultation bilaterally. ABDOMEN: Bowel sounds present. Soft. He is actually not having any tenderness to palpation throughout the abdomen. EXTREMITIES: No peripheral edema. VESSELS: Radial pulses are 2+ bilaterally. NEUROLOGIC: Cranial nerves 2 through 12 intact bilaterally. No focal deficits. LABORATORY STUDIES: WBC initially 12.8 now down to 8.7, hemoglobin 13.9, platelets 200. BUN 32, creatinine 1.58, total bilirubin 2.2, alkaline phosphatase 119, AST 20, ALT 31. Albumin 3.6. Troponin 0.01. Urinalysis is positive for hyaline casts, but negative for wbc's. IMAGING STUDIES: Chest x-ray showed no acute processes. He has retained shot in the chest wall as well as a pacemaker. CT of the abdomen and pelvis demonstrates some persistent wall thickening in sigmoid colon with some inflammatory stranding in an area of scattered diverticula consistent with probable mild diverticulitis. There is no evidence of any fluid collection. He is post cholecystectomy. Normal-appearing pancreas, spleen, and adrenals. Notably, prior CT from November 2019 had showed similar findings in the sigmoid colon and also findings of stercoral colitis at that time. 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 ASSESSMENT AND PLAN: 1. Sigmoid diverticulitis, recurrent. CT findings suggest recurrent sigmoid diverticulitis, though findings are mild and uncomplicated and clinically he is not having any ongoing lower abdominal pain. I note he was also recently treated for C difficile, so recurrent C difficile infection is a possibility, even though diarrhea is not a prominent feature of this presentation. Should recheck the stool for C difficile and other infectious pathogens. I agree with having started the IV antibiotics. Anticipate completion of a 7 to 10 day course of antibiotics total. 2. Nausea and vomiting. This is his primary complaint. Could be a manifestation of mild diverticulitis. He also does have a known history of erosive duodenitis and reflux esophagitis per last esophagogastroduodenoscopy in 2016. We are not going to plan on any endoscopic investigation at this time. But it would be reasonable to add a proton pump inhibitor to see how much this improves his symptoms. It looks like he has a documented allergy to ondansetron, so he is getting promethazine p.r.n. 3. Peripheral vascular disease, severe. 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 He is not having significant abdominal pain, but it is possible that vascular insufficiency is a contributor to his poor appetite. Thank you for the consultation. Please call me anytime with questions or concerns. Job ID: [id number] MTDD
[2020-02-14] MEDS ORDERED: cefTRIAXone\\ROCEPHIN 1 GM in Sodium Chloride 0.9% 100 ML IVPB SCH (16:00)
--- NOTE | 2020-02-14 19:44 | PDOC.EVN ---
Event Note - Event Note Event Note: Notified by RN, patient request PO medication for BP 192/81. Patient asymptomatic. HR 78. Has Labetalol IV PRN ordered but no IV access at present. RN indicates primary team aware patient has no IV access and orders currently being entered to have patient undergo PICC line placement tomorrow. Attempted made during the day x [address] IV[address] He is currently supposed to be receiving IV fluids due to dehydration and other IV meds ordered. retail shift manager RN will have attempt done with US. In the meantime Amlodipine 5 mg PO x 1 ordered for BP. She will contact us if any issues obtain IV access.
[2020-02-14] MEDS ORDERED: Amlodipine 5 MG TAB PO SCH (19:45)
[2020-02-14] MEDS: Rivaroxaban 10 MG TAB PO SCH (20:14)
[2020-02-14] MEDS: Atorvastatin Calcium 10 MG TAB PO SCH (20:14)
[2020-02-15 04:09] LABS: #Eosinphils 0.3 thou/uL (0.0-0.7); #Lymphocytes 2.4 thou/uL (1.20-3.40); #Monocytes 0.7 thou/uL (0.11-0.59); #Neutrophils 5.6 thou/uL (1.40-6.50); %Basophils 0.3 % (0.0-1.0); %Eosinophils 3.1 % (0.0-10.0); %Lymphocytes 26.5 % (21.0-51.0); %Monocytes 7.8 % (0.0-10.0); %Neutrophils 62.3 % (42.0-75.0); Hemoglobin 14.3 g/dL (14.0-18.0); Mean Corpuscular HGB CONC 32.7 g/dL (32.0-36.0); Mean Corpuscular Hemoglobin 29.8 pg (27.0-31.0); Mean Platelet Volume 8.7 fL (7.4-10.4); Platelet Count 243 thou/uL (130-400); RBC Distribution Width 13.1 % (11.5-14.5); Red Blood Cell (RBC) Count 4.81 mill/uL (4.70-6.10)
[2020-02-15 04:30] LABS: Anion Gap 15 mmol/L (10-20); BUN (Urea Nitrogen) 20 mg/dL (8.4-25.7); Calc. Creatinine Clearance 59 mL/min (70-130); Calcium 8.6 mg/dL (7.8-10.44); Carbon Dioxide 22 mmol/L (23-31); Chloride 105 mmol/L (98-107); Estimated GFR-MDRD 63; Glucose 204 mg/dL (83-110); Magnesium 1.9 mg/dL (1.6-2.6); Potassium 3.1 mmol/L (3.5-5.1); Sodium 139 mmol/L (136-145)
[2020-02-15] MEDS: Piperacillin/Tazobactam 2.25 GM in Sodium Chloride 0.9% 100 ML IVPB SCH ×4 (05:27→23:13)
[2020-02-15] MEDS: HumaLOG 300 UNITS/3 ML VIAL SC PRN ×3 (06:32→17:27)
[2020-02-15] MEDS: Gabapentin 300 MG CAP PO SCH ×2 (09:44→19:46)
--- NOTE | 2020-02-15 10:21 | PRG ---
DATE OF SERVICE: 02/15/2020 SUBJECTIVE: Mr. Sotomayor says he is feeling really well today. He had a normal-appearing bowel movement this morning. He was able to tolerate a muffin and some toast for breakfast. He is not having any nausea or abdominal pain. OBJECTIVE: VITAL SIGNS: Temperature 98.2, pulse 69, blood pressure 197/81, and 96% oxygen saturation on room air. GENERAL: No acute distress. HEART: Regular rate and rhythm. LUNGS: Clear to auscultation bilaterally. ABDOMEN: Soft and nontender to palpation. EXTREMITIES: No peripheral edema. LABORATORY STUDIES: Sodium 139, potassium 3.1, BUN 20, and creatinine down to 1.10. Magnesium 1.9, WBC 9.0, hemoglobin 14.3, and platelets 243. ASSESSMENT AND PLAN: 1. Recurrent diverticulitis, mild, already clinically improved. 2. Nausea and vomiting, resolved. The patient is doing very well today. I think his diet can be advanced all the way. I would simply continue antibiotics, switch to oral on hospital discharge, ciprofloxacin and Flagyl, for a 7-day course. I would also just continue the daily oral proton pump inhibitor. We will see him back in clinic in the next few weeks. Given his age and last colonoscopy just 3 years ago, I do not think we are going to be planning on any followup colonoscopy, unless these attacks continue to recur and questions remain. GI will sign off, but please call back anytime with questions or concerns. Job ID: [id number]
[2020-02-15] MEDS: Labetalol HCl 100 MG/20 ML VIAL SLOW IVP PRN ×2 (11:26→17:02)
[2020-02-15] MEDS ORDERED: Electrolyte Replacement Protocol FS PRN (12:00)
[2020-02-15] MEDS ORDERED: Lisinopril 20 MG TAB PO SCH (12:00)
[2020-02-15] MEDS ORDERED: Metoprolol Tartrate 25 MG TAB PO SCH (12:00)
[2020-02-15] MEDS ORDERED: Electrolyte Replacement Protoc 1 EACH EACH FS SCH (12:00)
[2020-02-15] MEDS ORDERED: Potassium Chloride 20 MEQ TAB PO SCH ×2 (13:31→14:00)
--- NOTE | 2020-02-15 13:35 | PDOC.HOSPP ---
- Subjective Encounter Date: 02/15/20 Encounter Time: 08:00 Subjective: overnight, had multiple loose bowel movements, vomiting resolved. Hypertensive so received labetalol. This morning, feeling better and requests solid diet. Abdominal pain significantly improved - Objective Vital Signs & Weight: Vital Signs (12 hours) Temp Pulse Resp BP BP Pulse Ox 02/15/20 12:12 173/72 H 02/15/20 11:26 69 201/80 H 02/15/20 07:40 98.2 F 69 16 197/81 H 96 Weight Admit Weight 199 lb 6 oz Weight 199 lb 6 oz I&O: 02/14/20 02/15/20 02/16/20 06:59 06:59 06:59 Intake Total 1740 960 710 Balance 1740 960 710 Result Diagrams: 02/15/20 03:30 02/15/20 03:30 Additional Labs: Accuchecks 02/15/20 02/14/20 02/14/20 10:53 20:17 17:58 POC Glucose 206 H 156 H 156 H Hospitalist ROS - Review of Systems Constitutional: denies: chills, sweats Respiratory: denies: cough, dry, shortness of breath Cardiovascular: denies: chest pain, palpitations, orthopnea Gastrointestinal: reports: diarrhea. denies: nausea, vomiting, abdominal pain Genitourinary: denies: dysuria, hematuria - Medication Medications: Active Medications Generic Name Dose Route Start Last Admin Trade Name Freq PRN Reason Stop Dose Admin Atorvastatin Calcium 10 mg 02/14/20 21:00 02/14/20 20:14 Atorvastatin Calcium 10 Mg Tab PO 10 mg HS ISABELLE Administration Gabapentin 300 mg 02/14/20 09:00 02/15/20 09:44 Gabapentin 300 Mg Cap PO 300 mg BID ISABELLE Administration Sodium Bicarbonate 150 meq/ 1,150 mls @ 100 mls/hr 02/14/20 11:00 02/14/20 12:49 Dextrose/Water IV 1,150 mls INF ISABELLE Administration Piperacillin Sod/Tazobactam 100 mls @ 200 mls/hr 02/14/20 12:00 02/15/20 11:24 Sod 2.25 gm/ Sodium Chloride IVPB 100 mls Q6HR ISABELLE Administration Insulin Human Lispro 0 units 02/13/20 19:02 02/15/20 11:23 Humalog 300 Units/3 Ml Vial SC 3 unit .MILD SLIDING SCALE PRN Administration Mild Correctional Scale Labetalol HCl 10 mg 02/14/20 08:19 02/15/20 11:26 Labetalol Hcl 100 Mg/20 Ml Vial SLOW IVP 10 mg Q4H PRN Administration BP > 160/100 Lisinopril 20 mg 02/15/20 12:00 02/15/20 12:12 Lisinopril 20 Mg Tab PO 02/15/20 14:00 20 mg NOW ISABELLE Administration Metoprolol Tartrate 12.5 mg 02/15/20 12:00 02/15/20 12:15 Metoprolol Tartrate 25 Mg Tab PO 02/15/20 14:00 12.5 mg NOW ISABELLE Administration Pantoprazole Sodium 40 mg 02/15/20 09:00 02/15/20 09:44 Pantoprazole 40 Mg Tab PO 40 mg DAILY ISABELLE Administration Promethazine HCl 12.5 mg 02/13/20 21:43 02/14/20 05:30 Promethazine Hcl 25 Mg/Ml Vial IM 12.5 mg Q4H PRN Administration Nausea/Vomiting Promethazine HCl 25 mg 02/13/20 21:43 02/14/20 20:14 Promethazine 25 Mg Tab PO 25 mg Q6H PRN Administration Nausea/Vomiting Rivaroxaban 20 mg 02/14/20 17:00 02/14/20 20:14 Rivaroxaban 10 Mg Tab PO 20 mg QPM-WM ISABELLE Administration - Exam General Appearance: NAD, awake alert Eye: PERRL, anicteric sclera Neck: no JVD Heart: RRR, no murmur, no gallops, no rubs Respiratory: CTAB, no wheezes, no rales, no ronchi Gastrointestinal: soft, non-tender, non-distended, normal bowel sounds Extremities: no edema Skin - other findings: rash completely resolved Psychiatric: normal affect, normal behavior, A&O x 3 Hosp A/P - Plan recurrent diverticulitis symptoms resolved; tolerating diet advance diet continue zosyn appreciated GI recs; will DC on 7 day course Hypertension restarted home regimen #prerenal MARTA resolved with IVF #drug eruption (resolved) maculopapular rash that started after admission Peripheral vascular disease Status post femoral shunt continue xarelto Small bilateral pleural effusion -cardiomegaly Possibly due to heart failurehas cardiomegaly Last echo showed EF 50 to 55% with restrictive filling pattern02/06/2019 Diffuse osteopenia Consider assessing for osteoporosis after acute events Diabetes mellitus mild sliding scale VTE prophylaxistherapeutic on Xarelto CODE STATUSfull code
[2020-02-15] MEDS ORDERED: Magnesium 2 GM/50 ML 2 GM in Premix Bag 1 BAG IVPB SCH (13:45)
[2020-02-15] MEDS: Rivaroxaban 10 MG TAB PO SCH (17:02)
--- NOTE | 2020-02-15 17:04 | PDOC.FMACP ---
Advance Care Planning - Problem (1) Diverticulitis Status: Acute Code(s): K57.92 - DVTRCLI OF INTEST, PART UNSP, W/O PERF OR ABSCESS W/O BLEED (2) Palliative care encounter Status: Acute Code(s): Z51.5 - ENCOUNTER FOR PALLIATIVE CARE (3) DM type 2 (diabetes mellitus, type 2) Status: Chronic (4) HTN (hypertension) Status: Chronic Code(s): I10 - ESSENTIAL (PRIMARY) HYPERTENSION Qualifiers: Hypertension type: essential hypertension Qualified Code(s): I10 - Essential (primary) hypertension (5) PVD (peripheral vascular disease) Status: Chronic Code(s): I73.9 - PERIPHERAL VASCULAR DISEASE, UNSPECIFIED - Note Participants: patient, palliative care Summary: Palliative Care introduced Advanced Care Planning, opportunity to decline. The diagnosis, prognosis and goals of care were discussed. Appropriate forms and documentation to accomplish the goals of care were discussed. All questions were answered. Confirmed [facility] with [facility], discussed providing documents to [facility] for medical records and communication of wishes in the event he is unable to voice them. Palliative Care will assist as needed for completion of any forms, or revisit goal of care as needed. Please also refer to Palliative Care notes in note section. Time Spent (mins): 15
[2020-02-15] MEDS: Atorvastatin Calcium 10 MG TAB PO SCH (19:46)
[2020-02-15] MEDS: diphenhydrAMINE 25 MG CAP PO PRN (19:46)
[2020-02-15] MEDS: Metoprolol Tartrate 25 MG TAB PO SCH (19:46)
--- NOTE | 2020-02-15 23:38 | PDOC.EVN ---
Event Note - Event Note Event Note: notified by RN regarding diffuse pruritis that was previously responding with Benadryl 25 mg PO, and now no longer working to control itching. Patient seen and examined. Complains of burning/itching sensation with erythematous spots on his hands and neck. States his throat feels slightly itchy as well but no difficulty swallowing. No difficulty with breathing or sob. Has no tongue swelling. On exam hands look slightly edematous. Very mild areas of erythema on his neck and his back is without rash or hives but with mild diffuse blanching erythema. We will give Solumedrol 60 mg IV x 1 and hold Zosyn. Continue to monitor closely. Vitals stable at present.
[2020-02-15] MEDS ORDERED: methylPREDNISolone Sod Succ 40 MG VIAL IVP SCH (23:45)
[2020-02-15] MEDS: Sodium Bicarbonate 150 MEQ in Dextrose 5% in Water 1,000 ML IV SCH (23:53)
[2020-02-16] MEDS: Labetalol HCl 100 MG/20 ML VIAL SLOW IVP PRN (03:48)
[2020-02-16] MEDS: diphenhydrAMINE 25 MG CAP PO PRN (03:53)
[2020-02-16 04:29] LABS: Anion Gap 15 mmol/L (10-20); BUN (Urea Nitrogen) 10 mg/dL (8.4-25.7); Calc. Creatinine Clearance 68 mL/min (70-130); Calcium 8.9 mg/dL (7.8-10.44); Carbon Dioxide 28 mmol/L (23-31); Chloride 103 mmol/L (98-107); Estimated GFR-MDRD 74; Glucose 266 mg/dL (83-110); Magnesium 1.8 mg/dL (1.6-2.6); Potassium 4.1 mmol/L (3.5-5.1); Sodium 142 mmol/L (136-145)
[2020-02-16] MEDS ORDERED: Magnesium 2 GM/50 ML 2 GM in Premix Bag 1 BAG IVPB SCH (04:45)
[2020-02-16] MEDS: HumaLOG 300 UNITS/3 ML VIAL SC PRN ×2 (06:01→11:37)
[2020-02-16] MEDS ORDERED: Ciprofloxacin 500 MG TAB PO SCH ×2 (07:30→20:00)
[2020-02-16 07:46] VITALS: TEMP 98.8
[2020-02-16] MEDS: Gabapentin 300 MG CAP PO SCH (08:08)
[2020-02-16] MEDS: metroNIDAZOLE 500 MG TAB PO SCH ×2 (08:09→14:57)
[2020-02-16] MEDS: Metoprolol Tartrate 25 MG TAB PO SCH (08:11)
[2020-02-16] MEDS ORDERED: Lisinopril 10 MG TAB PO SCH (09:00)
[2020-02-16 10:30] VITALS: BP 124/79
--- NOTE | 2020-02-16 14:00 | PDOC.EVN ---
Event Note - Event Note Event Note: nurse notified that blood pressure is elevated 172/79 on encounter. Replied that not worried about blood pressure because medications were not given yet. Requested that patient's blood pressure medications be given and monitored
--- NOTE | 2020-02-17 02:02 | DIS ---
DATE OF ADMISSION: 02/13/2020 DATE OF DISCHARGE: 02/16/2020 HOSPITAL COURSE: Mr. Sotomayor is an -tdpd-dgc male with a recent diagnosis of the diverticulitis and stercoral colitis, who presented with acute nausea, vomiting, and diarrhea. He was diagnosed with recurrent diverticulitis, and was started on antibiotics, and supportive care after which symptoms resolved. Gastroenterology was also involved in the care of the patient, and agreed with the management. Prior to discharge, the patient was set up with the followup appointments with Gastroenterology. In addition to that, the patient was prescribed and educated regarding the need to maintain soft stools in order to prevent recurrence of diverticulitis. He was discharged home hemodynamically stable with no complaints. PHYSICAL EXAMINATION: VITAL SIGNS: Blood pressure 124/79, pulse 70, respiratory rate 18, oxygen saturation 97% on room air. GENERAL: Lying comfortably in bed. Awake and alert. HEENT: Normocephalic, atraumatic. NECK: No JVD. HEART: Regular rate and rhythm. No murmurs, gallops, or rubs. RESPIRATORY: Clear to auscultation bilaterally. No wheezing, rales or rhonchi. GI: Soft, nontender, nondistended. Normal bowel sounds. EXTREMITIES: No edema. PSYCHIATRIC: Proper mood and affect. Alert and oriented x3. MEDICATIONS: New medications: 1. Benadryl 25 mg p.o. q.6 p.r.n. for itching (during his inpatient stay the patient developed maculopapular rash in response to penicillin). 2. Ciprofloxacin 500 mg p.o. b.i.d. 3. Metronidazole 500 mg p.o. t.i.d. Both of these medications for a total of 5 days. 1. Senna docusate one tablet p.o. daily p.r.n. hard stools. Continued medications: 1. Gabapentin. 2. Lisinopril. 3. Metoprolol tartrate. 4. Pravastatin. 5. Rivaroxaban. Job ID: [id number]
--- NOTE | 2020-02-17 08:18 | PQF ---
CLINICAL DOCUMENTATION CLARIFICATION FORM: Dear : Leighton Li Date / Time:02/17/2020 Please exercise your independent, professional judgment in responding to the clarification form. Clinical indicators are provided on the bottom of this form for your review Please check appropriate box(es): HEART FAILURE: A. ACUITY [ ] Acute [ x ] Acute on Chronic [ ] Chronic B. TYPE: [ ] Systolic / HFrEF [ x ] Diastolic / HFpEF [ ] Combined Systolic / Diastolic [ ] Hypertensive Heart and Kidney disease [ ] Hypertensive Heart Disease [ ] Hypertensive Kidney Disease [ ] Other diagnosis [ ] Unable to determine In addition, please specify: Present on Admission (POA): [ x ] Yes [ ] No [ ] Unable to determine Physician Signature: Date/Time: For continuity of documentation, please document condition throughout progress notes and discharge summary. Thank You. To be completed by CDI/Coding staff for physician review: Present Clinical Indicators - Signs / Symptoms / Labs Results and Location in Medical Record [ x] Possible due to heart failure-has cardiomyopathy H&P, 02/12, Cj Lozano MD [ x] Last echo showed EF 50 to 55% with restrictive filling pattern-02/06 H&P, 02/12, Cj Lozano MD [ x] Cardiomegaly- stable H&P, 02/12, Cj Lozano MD [ x ] Small bilateral plural effusion H&P, 02/12, Cj Lozano MD [ x] Extremities: bilateral edema 1+ H&P, 02/12, Cj Lozano MD [ x] BNP: 602.4H Laboratory report, 02/15 Present Risk Factors Results and Location in Medical Record [ x] History of Hypertension H&P, 02/12, Cj Lozano MD [ x] CKD stage 3 H&P, 02/12, Cj Lozano MD Present Treatments Results and Location in Medical Record [ x ] Labitalol.IV 02/13 CDS/Associate Director Financial Aid Signature: Ayla Nye Phone #: [phone] Date/Time:_02/17/2020 This is a permanent part of the Medical Record [facility]
--- NOTE | 2020-02-24 16:28 | EKG ---
Test Reason : Blood Pressure : / mmHG Vent. Rate : 072 BPM Atrial Rate : 067 BPM P-R Int : 000 ms QRS Dur : 094 ms QT Int : 458 ms P-R-T Axes : 000 -17 251 degrees QTc Int : 501 ms Atrial fibrillation with frequent ventricular-paced complexes Inferior infarct , age undetermined Anterior infarct , age undetermined Prolonged QT Abnormal ECG Confirmed by NORA JAMISON DO ([id number]), acquisition editor EMELYN TORIBIO ([id number]) on 02/24/2020 4:27:49 PM Referred By: Confirmed By:NORA JAMISON DO
== END 2020-02-16 15:49 | disposition home or self-care (01) | DRG 391 ==
LOC: ERS 12:54 → ONC 16:48
PROVIDERS: ADMIT Student in an Organized Health Care Education/Training Program; ATTEND Student in an Organized Health Care Education/Training Program
DX: K57.32 Diverticulitis of large intestine without perforation or abscess without bleeding (principal); I50.33 Acute on chronic diastolic (congestive) heart failure; N17.9 Acute kidney failure, unspecified; I13.0 Hypertensive heart and chronic kidney disease with heart failure and stage 1 through stage 4 chronic kidney disease, or unspecified chronic kidney disease; E86.0 Dehydration; N18.3 Chronic kidney disease, stage 3 (moderate); I73.9 Peripheral vascular disease, unspecified; Z20.828 Contact with and (suspected) exposure to other viral communicable diseases; Z51.5 Encounter for palliative care; L27.0 Generalized skin eruption due to drugs and medicaments taken internally; T36.1X5A Adverse effect of cephalosporins and other beta-lactam antibiotics, initial encounter; I25.10 Atherosclerotic heart disease of native coronary artery without angina pectoris; K21.9 Gastro-esophageal reflux disease without esophagitis; K63.5 Polyp of colon; E11.22 Type 2 diabetes mellitus with diabetic chronic kidney disease; E78.5 Hyperlipidemia, unspecified; M19.90 Unspecified osteoarthritis, unspecified site; I48.91 Unspecified atrial fibrillation; Z95.0 Presence of cardiac pacemaker; Z95.5 Presence of coronary angioplasty implant and graft; Z79.01 Long term (current) use of anticoagulants; Z89.422 Acquired absence of other left toe(s); Z87.891 Personal history of nicotine dependence; Z90.49 Acquired absence of other specified parts of digestive tract
CPT/HCPCS: 36415; 36416; 71045; 74176; 80048; 80053; 81003; 81015; 82570; 83690; 83735; 83880; 84300; 84484; 85025; 87045; 87046; 87324; 87427; 87449; 87635; 93005; 96365; 96366; 96367; J0696; J2543; J2550; J2920; J3475; J3490; J7070; Q0163; Q0169; U0003

== ENCOUNTER 2020-07-12 02:53 | Inpatient (IN) | payer MEDICARE, OTHER ==
[2020-07-12 03:26] LABS: #Basophils 0.1 thou/uL (0.0-0.2); #Eosinphils 0.1 thou/uL (0.0-0.7); #Lymphocytes 1.9 thou/uL (1.20-3.40); #Monocytes 1.1 thou/uL (0.11-0.59); #Neutrophils 12.2 thou/uL (1.40-6.50); %Basophils 0.3 % (0.0-1.0); %Eosinophils 0.4 % (0.0-10.0); %Lymphocytes 12.5 % (21.0-51.0); %Monocytes 7.2 % (0.0-10.0); %Neutrophils 79.6 % (42.0-75.0); Hemoglobin 15.3 g/dL (14.0-18.0); Mean Corpuscular HGB CONC 33.7 g/dL (32.0-36.0); Mean Corpuscular Hemoglobin 29.8 pg (27.0-31.0); Mean Corpuscular Volume 88.4 fL (78.0-98.0); Mean Platelet Volume 8.6 fL (7.4-10.4); Platelet Count 252 thou/uL (130-400); RBC Distribution Width 12.5 % (11.5-14.5); Red Blood Cell (RBC) Count 5.12 mill/uL (4.70-6.10); White Blood Cell (WBC) Count 15.3 thou/uL (4.8-10.8)
[2020-07-12 03:49] LABS: ALT (SGPT) 8 U/L (8-55); AST (SGOT) 12 U/L (5-34); Albumin 3.2 g/dL (3.4-4.8); Alkaline Phosphatase 106 U/L (40-110); Anion Gap 17 mmol/L (10-20); BUN (Urea Nitrogen) 16 mg/dL (8.4-25.7); Calc. Creatinine Clearance 0 mL/min (70-130); Calcium 8.5 mg/dL (7.8-10.44); Carbon Dioxide 20 mmol/L (23-31); Chloride 106 mmol/L (98-107); Glucose 220 mg/dL (83-110); Potassium 3.7 mmol/L (3.5-5.1); Protein, Total 6.2 g/dL (5.8-8.1); Sodium 139 mmol/L (136-145)
[2020-07-12] MEDS ORDERED: Ondansetron PF 4 MG/2 ML Vial ONE (03:51)
[2020-07-12] MEDS ORDERED: Vancomycin 1 GM/200 ML BAG ONE (03:51)
[2020-07-12] MEDS ORDERED: Cefepime 2 GM VIAL ONE (03:51)
[2020-07-12 03:52] LABS: Bacteria/HPF None Seen HPF (None Seen); Bilirubin Negative (Negative); Blood, Urine Negative (Negative); Clarity Clear (Clear); Glucose, Urine (Dipstick) >=1000 mg/dL (Negative); Ketone, Urine Negative (Negative); Leukocyte Negative Leu/uL (Negative); Mucous/LPF Rare LPF (<2+); Nitrite Negative (Negative); Protein, Urine (Dipstick) 70 mg/dL (Neg-Trace); RBC/HPF 0-3 HPF (0-3); Specific Gravity, Urine 1.016 (1.002-1.036); Squamous Epithelial 0-3 HPF (0-3); Urobilinogen Normal mg/dL (Less than 2); WBC/HPF 0-3 HPF (0-3); pH, Urine 5.5 (5.0-9.0)
[2020-07-12 04:20] LABS: CKMB 1.1 ng/mL (0-6.6)
[2020-07-12] MEDS ORDERED: Aspirin 325 MG TAB ONE ×2 (04:50)
[2020-07-12 06:22] LABS: Lactic Acid 1.9 mmol/L (0.5-2.2)
[2020-07-12 07:31] LABS: Troponin I 0.019 ng/mL (< 0.028)
--- NOTE | 2020-07-12 07:54 | RAD ---
CHEST 1 VIEW: Date: 07/12/2020 COMPARISON: 02/13/2020. HISTORY: Weakness. FINDINGS: There is cardiomegaly. Stable left-sided transvenous pacemaker. There is atherosclerosis of the aorta . Lung volumes are diminished, likely due to poor inspiratory effort. Chronic changes without mass or c onsolidation. No pleural effusion or pneumothorax. IMPRESSION: 1. Cardiomegaly without evidence of congestive heart failure. 2. Atherosclerosis. 3. Chronic changes of lung parenchyma. Lung volumes are diminished due to poor inspiratory effort. POS: PPP
[2020-07-12] MEDS ORDERED: Acetaminophen 325 MG TAB PO PRN (08:50)
[2020-07-12] MEDS ORDERED: Ondansetron PF 4 MG/2 ML Vial IVP PRN (08:50)
[2020-07-12] MEDS ORDERED: Dextrose 5% in Water 1,000 ML IV PRN (08:54)
[2020-07-12] MEDS ORDERED: Dextrose 50% Abboject 50 ML SYRINGE SLOW IVP PRN (08:54)
[2020-07-12 08:55] LABS: SARS-CoV-2 PCR by NAA Not Detected (NotDetected)
[2020-07-12] MEDS ORDERED: Famotidine/PF 20 mg/2ml Vial ONE (09:22)
[2020-07-12] MEDS: Famotidine/PF 20 mg/2ml Vial SLOW IVP SCH ×2 (09:27→22:29)
[2020-07-12] MEDS: Sodium Chloride 0.9% 1,000 ML IV SCH (09:31)
[2020-07-12 10:29] LABS: Troponin I 0.018 ng/mL (< 0.028)
[2020-07-12] MEDS ORDERED: Potassium Chloride 20 MEQ TAB ONE (11:08)
--- NOTE | 2020-07-12 11:30 | PDOC.BPN ---
- Brief Progress Note dictated [id number]
--- NOTE | 2020-07-12 11:58 | HP ---
CHIEF COMPLAINT: Weakness. HISTORY OF PRESENT ILLNESS: Mr. Sotomayor is an 89-year-old male with past medical history of cardiac pacemaker, diabetes, hypertension, atrial fibrillation, cardiac stents ? on anticoagulation, peripheral vascular disease, among others, presents to the emergency room with generalized weakness. The patient has been progressively weak over the last 2 days. Denies nausea, but he did vomit once. He denies shortness of breath. He does report a nonproductive cough. He denies ill contacts. The patient was found to have diffuse erythematous rash to his torso. Denies fever or chills. Workup in the emergency room, the patient initially was hypotensive with a blood pressure of 80/36. The septic workup was done in the emergency room. The patient was started on IV antibiotics. Lab work, urinalysis is unremarkable. Initial lactic acid was 4.2. WBC count is 15.3. The patient was given IV fluids. The patient's blood pressure responded. Latest blood pressure is . The patient was found to have an erythematous rash on his torso. The patient is being admitted to hospital for further management. PAST MEDICAL HISTORY: As mentioned above in History of Present Illness. PAST SURGICAL HISTORY: 1. Cholecystectomy. 2. Left toe amputation. 3. Femoral bypass. 4. Cardiac pacemaker. SOCIAL HISTORY: The patient is a former smoker, quit 10 years ago. Lives at home with family. The patient drinks socially. Denies drug use. REVIEW OF SYSTEMS: Review of 14 systems negative except what is mentioned in History of Present Illness. HOME MEDICATIONS: Need to be verified. ALLERGIES: THE PATIENT IS ALLERGIC TO ZOFRAN AND PENICILLINS. PHYSICAL EXAMINATION: GENERAL: The patient is awake, alert, does not appear to be in acute distress. VITAL SIGNS: Blood pressure , pulse is 70, respiratory rate is 19, oxygen saturation is 94% on room air, and temperature is 98.4. HEENT: Head; normocephalic, atraumatic. NECK: Supple. CHEST: Fair bilateral air entry. HEART: Distant heart sounds. ABDOMEN: Soft, nontender. Bowel sounds present. NEUROLOGIC: Awake, alert, moving extremities. PSYCH: Unable to assess. EXTREMITIES: No clubbing. No cyanosis. SKIN: There is an erythematous macular rash to the torso, which is blanching. No vesicles. No petechiae. MUSCULOSKELETAL: There is amputation of his toe. LABORATORY DATA: As mentioned above in History of Present Illness. IMAGING DATA: Chest x-ray shows cardiomegaly without evidence of heart failure. There are chronic lung changes. No acute finding. ASSESSMENT AND PLAN: 1. Sepsis, source unclear at this point. 2. Lactic acidosis. 3. Hypotension, resolved with IV fluids. 4. Erythematous skin rash. 5. Cardiac pacemaker. 6. Peripheral vascular disease. 7. Diabetes mellitus, type 2 with hyperglycemia. 8. History of atrial fibrillation. 9. Anticoagulated ? 10. Coronary artery disease. PLAN: 1. Admit. 2. Septic workup including blood cultures. 3. We will continue broad-spectrum antibiotics for now. 4. Cautious IV fluids. 5. Reconcile home medications. 6. DVT prophylaxis to continue home anticoagulation. 7. Expected length of stay more than one midnight. Job ID: [id number]
[2020-07-12] MEDS ORDERED: Cefepime 1 GM VIAL ONE (16:28)
[2020-07-12] MEDS: Rivaroxaban 10 MG TAB PO SCH (16:37)
[2020-07-12] MEDS ORDERED: HumaLOG 300 UNITS/3 ML VIAL ONE (16:39)
[2020-07-12] MEDS: HumaLOG 300 UNITS/3 ML VIAL SC PRN ×2 (16:40→22:48)
[2020-07-12] MEDS: Cefepime 1 GM in Sodium Chloride 0.9% 100 ML IVPB SCH (16:45)
[2020-07-13] MEDS: Cefepime 1 GM in Sodium Chloride 0.9% 100 ML IVPB SCH ×2 (04:18→15:39)
[2020-07-13] MEDS ORDERED: Vancomycin HCl 1 GM in Sodium Chloride 0.9% 250 ML 250 ML IVPB SCH (05:00)
[2020-07-13 05:06] LABS: Hemoglobin 13.7 g/dL (14.0-18.0); Mean Corpuscular HGB CONC 33.5 g/dL (32.0-36.0); Mean Corpuscular Hemoglobin 29.7 pg (27.0-31.0); Mean Corpuscular Volume 88.7 fL (78.0-98.0); Mean Platelet Volume 8.7 fL (7.4-10.4); Platelet Count 188 thou/uL (130-400); RBC Distribution Width 12.4 % (11.5-14.5); Red Blood Cell (RBC) Count 4.59 mill/uL (4.70-6.10); White Blood Cell (WBC) Count 11.4 thou/uL (4.8-10.8)
[2020-07-13 05:09] LABS: ALT (SGPT) 8 U/L (8-55); AST (SGOT) 9 U/L (5-34); Albumin 3.2 g/dL (3.4-4.8); Alkaline Phosphatase 90 U/L (40-110); Anion Gap 13 mmol/L (10-20); BUN (Urea Nitrogen) 27 mg/dL (8.4-25.7); Bilirubin, Total 1.3 mg/dL (0.2-1.2); Calc. Creatinine Clearance 56 mL/min (70-130); Calcium 8.4 mg/dL (7.8-10.44); Carbon Dioxide 22 mmol/L (23-31); Chloride 107 mmol/L (98-107); Glucose 280 mg/dL (83-110); Potassium 3.9 mmol/L (3.5-5.1); Protein, Total 6.2 g/dL (5.8-8.1); Sodium 138 mmol/L (136-145)
[2020-07-13] MEDS: Sodium Chloride 0.9% 1,000 ML IV SCH (05:09)
[2020-07-13 05:32] LABS: Band 39 % (5-11); Lymphocytes 10 % (21-51); MDiff Complete? YES; Monocytes 4 % (0-10); Neutrophil 47 % (42-75); Platelet Morphology Comment Appears Adequate
[2020-07-13] MEDS: HumaLOG 300 UNITS/3 ML VIAL SC PRN ×2 (05:49→12:04)
[2020-07-13] MEDS: Famotidine/PF 20 mg/2ml Vial SLOW IVP SCH ×2 (08:05→20:08)
--- NOTE | 2020-07-13 08:44 | RAD ---
Exam:2 views left foot HISTORY: Evaluate for osteomalacia COMPARISON: None FINDINGS: Extensive soft tissue swelling. Amputation of the first digit at the level of the proximal phalanx. There is moderate severe degenerative change involving the first metatarsal phalangeal joint space. Lisfranc alignment is maintained. No fracture. Multiple surgical clips are noted. There are extensive vascular calcifications. There are no erosive or destructive changes. No periosteal reaction. IMPRESSION: 1. Soft tissue swelling. Correlate for cellulitis. 2. No radiographic evidence of osteomyelitis.
--- NOTE | 2020-07-13 12:32 | PDOC.BPN ---
- Brief Progress Note [id number] Progress note
--- NOTE | 2020-07-13 12:55 | PRG ---
DATE OF SERVICE: 07/13/2020 SUBJECTIVE: The patient is sitting up in bed. He said he is feeling better. He thinks he is having more strength today, but still weak. OBJECTIVE: VITAL SIGNS: Blood pressure is 180/88, pulse is 68, respiratory rate is 18, temperature 97.9, oxygen saturation 96% on room air. HEAD AND NECK: Normocephalic and atraumatic. Neck is supple. CHEST: Fair bilateral air entry. HEART: S1 and S2, regular. ABDOMEN: Soft, nontender. Bowel sounds present. NEUROLOGIC: Awake, alert. PSYCHIATRIC: Normal mood. EXTREMITIES: Amputation of his first toe. There is soft tissue swelling of his foot with erythema. LABORATORY DATA: WBC count is 11.4, hemoglobin is 13.2, platelets are 188. Sodium is 138, potassium is 3.9, BUN is 27, creatinine 1.1, glucose 280. Foot x-ray shows soft tissue swelling. ASSESSMENT: 1. Sepsis, probably secondary to cellulitis of his foot. 2. Cellulitis of foot. 3. Hypotension, resolved. 4. Erythematous skin rash, improving. 5. Cardiac pacemaker. 6. Peripheral vascular disease. 7. Diabetes mellitus, type 2, with hyperglycemia. 8. History of atrial fibrillation. 9. Coronary artery disease. PLAN: 1. Continue with current IV antibiotics. 2. PT/OT eval and treat. The patient feels still weak. 3. Continue with current management. 4. GI and DVT prophylaxis. Job ID: [id number]
[2020-07-13] MEDS: Rivaroxaban 10 MG TAB PO SCH (15:39)
[2020-07-13] MEDS ORDERED: Metoprolol Tartrate 25 MG TAB ONE (19:57)
[2020-07-13] MEDS: Metoprolol Tartrate 25 MG TAB PO SCH (20:43)
[2020-07-13] MEDS: hydrALAZINE 20 MG/ML VIAL SLOW IVP PRN (22:00)
[2020-07-14] MEDS: Cefepime 1 GM in Sodium Chloride 0.9% 100 ML IVPB SCH ×2 (03:21→16:43)
[2020-07-14] MEDS: Sodium Chloride 0.9% 1,000 ML IV SCH (03:23)
[2020-07-14] MEDS: hydrALAZINE 20 MG/ML VIAL SLOW IVP PRN ×3 (03:37→20:10)
[2020-07-14] MEDS ORDERED: Vancomycin 1 GM in Premix Bag 1 BAG IVPB SCH (05:00)
[2020-07-14 05:07] LABS: Vancomycin, Trough 7.7 ug/mL
[2020-07-14 05:09] LABS: Hemoglobin 13.6 g/dL (14.0-18.0); MDiff Complete? YES; Mean Corpuscular HGB CONC 32.6 g/dL (32.0-36.0); Mean Corpuscular Hemoglobin 28.9 pg (27.0-31.0); Mean Corpuscular Volume 88.7 fL (78.0-98.0); Mean Platelet Volume 8.5 fL (7.4-10.4); Platelet Count 217 thou/uL (130-400); RBC Distribution Width 12.5 % (11.5-14.5); Red Blood Cell (RBC) Count 4.71 mill/uL (4.70-6.10); White Blood Cell (WBC) Count 12.7 thou/uL (4.8-10.8)
[2020-07-14 05:10] LABS: Anion Gap 11 mmol/L (10-20); BUN (Urea Nitrogen) 19 mg/dL (8.4-25.7); Band 8 % (5-11); Calc. Creatinine Clearance 76 mL/min (70-130); Calcium 8.5 mg/dL (7.8-10.44); Carbon Dioxide 24 mmol/L (23-31); Chloride 109 mmol/L (98-107); Glucose 174 mg/dL (83-110); Lymphocytes 20 % (21-51); Monocytes 6 % (0-10); Neutrophil 66 % (42-75); Platelet Morphology Comment Appears Adequate; Potassium 3.5 mmol/L (3.5-5.1); RBC Morphology Normal; Sodium 140 mmol/L (136-145)
[2020-07-14] MEDS: HumaLOG 300 UNITS/3 ML VIAL SC PRN ×2 (05:50→18:22)
[2020-07-14] MEDS: Famotidine/PF 20 mg/2ml Vial SLOW IVP SCH ×2 (08:09→20:11)
[2020-07-14] MEDS: Atorvastatin Calcium 20 MG TAB PO SCH (08:10)
[2020-07-14] MEDS: Lisinopril 20 MG TAB PO SCH (08:10)
[2020-07-14] MEDS: Metoprolol Tartrate 25 MG TAB PO SCH ×2 (08:10→20:11)
--- NOTE | 2020-07-14 12:03 | PDOC.BPN ---
- Brief Progress Note [id number] progress
--- NOTE | 2020-07-14 12:35 | PRG ---
DATE OF SERVICE: 07/14/2020 SUBJECTIVE: The patient is sitting in bed. He said he is feeling better but he still looks weak. PHYSICAL EXAMINATION: GENERAL: The patient is awake, alert, oriented. VITAL SIGNS: Blood pressure yesterday was high with systolic of 190. The latest blood pressure is 180/81, temperature is 98.5, heart rate 70, oxygen saturation is 98% on room air, respiratory rate is 20. HEAD AND NECK: Normocephalic, atraumatic. NECK: Supple. CHEST: Fair. Bilateral air entry. HEART: S1, S2. Regular. ABDOMEN: Soft, nontender. Bowel sounds present. NEUROLOGIC: Awake, alert, oriented, moving extremities. PSYCHIATRIC: Normal mood. EXTREMITIES: The patient still with surrounding erythema and area of swelling. ASSESSMENT: 1. Sepsis, probably secondary to cellulitis of the foot. 2. Cellulitis of the foot. 3. Hypotension, improved. 4. Hypertension. The patient's blood pressure is going up. The patient was restarted on his blood pressure medications. 5. Cardiac pacemaker. 6. Peripheral vascular disease. 7. Diabetes mellitus, type 2. 8. History of atrial fibrillation. 9. Coronary artery disease. PLAN: 1. Restart the patient's blood pressure medications. 2. We will assess for a rehab/[facility] facility versus home with home health. 3. Continue all current medications. 4. Continue antibiotics. 5. Possible discharge in a.m. if the patient's condition continued to improve. 6. Continue DVT prophylaxis. The patient is on Xarelto. Job ID: [id number]
[2020-07-14] MEDS: Rivaroxaban 10 MG TAB PO SCH (16:43)
[2020-07-14] MEDS ORDERED: cloNIDine 0.1 MG TAB PO SCH (16:45)
[2020-07-14] MEDS ORDERED: HYDROcodone/Acetaminophen 5/325 mg Tablet PO SCH (16:45)
[2020-07-14] MEDS: Vancomycin 1 GM in Premix Bag 1 BAG IVPB SCH (19:01)
[2020-07-14 22:11] LABS: Lactic Acid 1.5 mmol/L (0.5-2.2)
[2020-07-14 22:15] LABS: ALT (SGPT) 9 U/L (8-55); AST (SGOT) 12 U/L (5-34); Albumin 3.2 g/dL (3.4-4.8); Alkaline Phosphatase 79 U/L (40-110); Anion Gap 13 mmol/L (10-20); BUN (Urea Nitrogen) 15 mg/dL (8.4-25.7); Bilirubin, Total 1.1 mg/dL (0.2-1.2); Calc. Creatinine Clearance 76 mL/min (70-130); Calcium 8.3 mg/dL (7.8-10.44); Carbon Dioxide 20 mmol/L (23-31); Chloride 108 mmol/L (98-107); Globulin 2.9 g/dL (2.4-3.5); Glucose 183 mg/dL (83-110); Lipase 9 U/L (8-78); Magnesium 1.7 mg/dL (1.6-2.6); Potassium 3.4 mmol/L (3.5-5.1); Protein, Total 6.1 g/dL (5.8-8.1); Sodium 138 mmol/L (136-145)
[2020-07-15] MEDS ORDERED: Labetalol HCl 100 MG/20 ML VIAL SLOW IVP SCH (01:30)
[2020-07-15] MEDS: Cefepime 1 GM in Sodium Chloride 0.9% 100 ML IVPB SCH ×2 (03:24→17:24)
[2020-07-15 05:10] LABS: #Eosinphils 0.1 thou/uL (0.0-0.7); #Monocytes 0.9 thou/uL (0.11-0.59); #Neutrophils 5.7 thou/uL (1.40-6.50); %Basophils 0.5 % (0.0-1.0); %Lymphocytes 22.6 % (21.0-51.0); %Monocytes 10.4 % (0.0-10.0); %Neutrophils 65.4 % (42.0-75.0); Hemoglobin 13.2 g/dL (14.0-18.0); Mean Corpuscular HGB CONC 33.2 g/dL (32.0-36.0); Mean Corpuscular Hemoglobin 29.2 pg (27.0-31.0); Mean Corpuscular Volume 87.9 fL (78.0-98.0); Mean Platelet Volume 8.1 fL (7.4-10.4); Platelet Count 212 thou/uL (130-400); RBC Distribution Width 12.4 % (11.5-14.5); Red Blood Cell (RBC) Count 4.52 mill/uL (4.70-6.10); White Blood Cell (WBC) Count 8.6 thou/uL (4.8-10.8)
[2020-07-15] MEDS: Sodium Chloride 0.9% 1,000 ML IV SCH ×2 (05:18→17:26)
[2020-07-15] MEDS: Vancomycin 1 GM in Premix Bag 1 BAG IVPB SCH ×2 (05:18→17:22)
[2020-07-15 05:41] LABS: Anion Gap 15 mmol/L (10-20); BUN (Urea Nitrogen) 15 mg/dL (8.4-25.7); Calc. Creatinine Clearance 79 mL/min (70-130); Calcium 8.4 mg/dL (7.8-10.44); Carbon Dioxide 18 mmol/L (23-31); Chloride 109 mmol/L (98-107); Glucose 168 mg/dL (83-110); Potassium 3.2 mmol/L (3.5-5.1); Sodium 139 mmol/L (136-145)
[2020-07-15] MEDS ORDERED: Electrolyte Replacement Protocol 1 EACH FS PRN (06:00)
[2020-07-15] MEDS ORDERED: Potassium Chloride 20 MEQ TAB PO SCH ×2 (06:00→08:30)
[2020-07-15] MEDS: HumaLOG 300 UNITS/3 ML VIAL SC PRN ×2 (06:11→12:43)
[2020-07-15] MEDS ORDERED: Magnesium 2 GM/50 ML 2 GM in Premix Bag 1 BAG IVPB SCH (06:30)
[2020-07-15] MEDS: Famotidine/PF 20 mg/2ml Vial SLOW IVP SCH ×2 (08:15→21:42)
[2020-07-15] MEDS: Atorvastatin Calcium 20 MG TAB PO SCH (08:16)
[2020-07-15] MEDS: Lisinopril 20 MG TAB PO SCH (08:16)
[2020-07-15] MEDS: Metoprolol Tartrate 25 MG TAB PO SCH ×2 (08:16→21:42)
[2020-07-15] MEDS: hydrALAZINE 20 MG/ML VIAL SLOW IVP PRN (15:13)
[2020-07-15 17:03] LABS: Vancomycin, Trough 18.1 ug/mL
[2020-07-15] MEDS: Rivaroxaban 10 MG TAB PO SCH (17:22)
--- NOTE | 2020-07-15 19:07 | PDOC.HOSPP ---
- Subjective Encounter Date: 07/15/20 Subjective: Feeling better in general. Has no diarrhea. - Objective Vital Signs & Weight: Vital Signs (12 hours) Temp Pulse Resp BP BP Pulse Ox 07/15/20 15:22 96.8 F L 70 16 188/81 H 97 07/15/20 15:13 78 188/81 H 07/15/20 12:40 97.5 F L 78 16 177/78 H 97 07/15/20 08:16 173/72 H 07/15/20 07:55 98 07/15/20 07:50 98.2 F 70 14 173/72 H 98 Weight Weight 198 lb 6.656 oz I&O: 07/14/20 07/15/20 07/16/20 06:59 06:59 06:59 Intake Total 1890 1925 1520 Output Total 1200 400 Balance 690 1525 1520 Result Diagrams: 07/15/20 04:52 07/15/20 04:52 Additional Labs: Accuchecks 07/15/20 07/15/20 07/15/20 16:40 12:36 06:00 POC Glucose 101 H 159 H 181 H 07/14/20 20:30 POC Glucose 169 H Hospitalist ROS - Medication Medications: Active Medications Generic Name Dose Route Start Last Admin Trade Name Freq PRN Reason Stop Dose Admin Atorvastatin Calcium 20 mg 07/14/20 09:00 07/15/20 08:16 Atorvastatin Calcium 20 Mg Tab PO 20 mg DAILY ISABELLE Administration Famotidine 20 mg 07/12/20 09:00 07/15/20 08:15 Famotidine/Pf 20 Mg/2ml Vial SLOW IVP 20 mg Q12HR ISABELLE Administration Hydralazine HCl 10 mg 07/13/20 19:41 07/15/20 15:13 Hydralazine 20 Mg/Ml Vial SLOW IVP 10 mg Q4H PRN Administration SBP Greater Than 180 Sodium Chloride 1,000 mls @ 50 mls/hr 07/12/20 09:00 07/15/20 17:26 Normal Saline 0.9% IV Not Given .Q20H ISABELLE Cefepime HCl 1 gm/ Sodium 100 mls @ 200 mls/hr 07/12/20 16:00 07/15/20 17:24 Chloride IVPB 100 mls 0400,1600 ISABELLE Administration Vancomycin HCl 1 gm/ Device 200 mls @ 166.67 mls/hr 07/14/20 17:00 07/15/20 17:22 IVPB 200 mls 0500,1700 ISABELLE Administration Insulin Human Lispro 0 units 07/12/20 08:54 07/15/20 12:43 Humalog 300 Units/3 Ml Vial SC 2 unit .MILD SLIDING SCALE PRN Administration Mild Correctional Scale Lisinopril 40 mg 07/14/20 09:00 07/15/20 08:16 Lisinopril 20 Mg Tab PO 40 mg DAILY ISABELLE Administration Metoprolol Tartrate 25 mg 07/13/20 21:00 07/15/20 08:16 Metoprolol Tartrate 25 Mg Tab PO 25 mg BID ISABELLE Administration Ondansetron HCl 4 mg 07/12/20 08:50 07/14/20 19:02 Ondansetron Pf 4 Mg/2 Ml Vial IVP 4 mg Q6H PRN Administration Nausea/Vomiting Rivaroxaban 20 mg 07/12/20 17:00 07/15/20 17:22 Rivaroxaban 10 Mg Tab PO 20 mg QPM-WM ISABELLE Administration Sodium Chloride 10 ml 07/15/20 09:00 07/15/20 08:16 Flush - Normal Saline 10 Ml Syringe IVF 10 ml Q12HR ISABELLE Administration Hospitalist Exam Vitals: Vital Signs (12 hours) Temp Pulse Resp BP BP Pulse Ox 07/15/20 15:22 96.8 F L 70 16 188/81 H 97 07/15/20 15:13 78 188/81 H 07/15/20 12:40 97.5 F L 78 16 177/78 H 97 07/15/20 08:16 173/72 H 07/15/20 07:55 98 07/15/20 07:50 98.2 F 70 14 173/72 H 98 Weight Weight 198 lb 6.656 oz General Appearance: NAD, awake alert Eye: PERRL, anicteric sclera Heart: RRR, no murmur, no gallops, no rubs, normal peripheral pulses Respiratory: CTAB, no wheezes, no rales, no ronchi, normal chest expansion, no tachypnea, normal percussion Gastrointestinal: soft, non-tender, non-distended, normal bowel sounds, no p alpable masses Extremities - other findings: Left great toe amputated. Left second toe with superficial ulceration Skin - other findings: Mild erythema of the left second toe and dorsum of the foot. Musculoskeletal: normal tone, normal strength, no muscle wasting Psychiatric: normal affect, normal behavior, A&O x 3 Hosp A/P (1) Sepsis Code(s): A41.9 - SEPSIS, UNSPECIFIED ORGANISM Status: Acute (2) Cellulitis of left foot Code(s): L03.116 - CELLULITIS OF LEFT LOWER LIMB Status: Acute (3) Foot ulcer, left Code(s): L97.529 - NON-PRESSURE CHRONIC ULCER OTH PRT LEFT FOOT W UNSP SEVERITY Status: Acute (4) Orthostatic hypotension Code(s): I95.1 - ORTHOSTATIC HYPOTENSION Status: Acute (5) CKD (chronic kidney disease), stage III Code(s): N18.3 - CHRONIC KIDNEY DISEASE, STAGE 3 (MODERATE) * DO NOT USE * Status: Chronic (6) Chronic anticoagulation Code(s): 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 Remove enteric precautions. Patient appears to be getting close to the point of transitioning over to p.o. antibiotics and discharging home. Replace potassium.
[2020-07-16] MEDS: hydrALAZINE 20 MG/ML VIAL SLOW IVP PRN ×4 (01:25→15:32)
[2020-07-16] MEDS: Cefepime 1 GM in Sodium Chloride 0.9% 100 ML IVPB SCH (04:07)
[2020-07-16] MEDS: Sodium Chloride 0.9% 1,000 ML IV SCH (04:09)
[2020-07-16] MEDS: Vancomycin 1 GM in Premix Bag 1 BAG IVPB SCH (04:32)
[2020-07-16] MEDS: Atorvastatin Calcium 20 MG TAB PO SCH (08:31)
[2020-07-16] MEDS: Lisinopril 20 MG TAB PO SCH (08:31)
[2020-07-16] MEDS: Famotidine/PF 20 mg/2ml Vial SLOW IVP SCH (08:32)
[2020-07-16] MEDS: Metoprolol Tartrate 25 MG TAB PO SCH (08:34)
[2020-07-16 09:24] VITALS: TEMP 98.8
[2020-07-16] MEDS ORDERED: Amlodipine 5 MG TAB PO SCH (14:15)
[2020-07-16] MEDS ORDERED: Vancomycin HCl 25 MG/ML Oral PO SCH (16:00)
[2020-07-16 16:37] VITALS: BP 155/65
--- NOTE | 2020-07-17 19:29 | PDOC.DS.DS ---
Provider Date of Admission: 07/12/20 04:15 Date of Discharge: 07/17/20 Admitting Provider: Lloyd Tate MD Primary Care Physician: Afshin Ellis MD Course Hospital Course: Discharge Diagnoses: 1. Hypotension possibly from dehydration 2. C diff diarrhea 3. Torso cellulitis versus allergic reaction 4. Leukocytosis 5. Anemia 4. Hypokalemia Brief HPI: This is a 89-year-old male with a past medical history of hypertension who presented to the emergency room due to generalized weakness. Patient was unable to get up from the toilet. He also had a nonproductive cough. He also had a diffuse erythematous rash to his torso. His blood pressure was 80/36 on arrival. Temp is 98.4. Rest of vitals were normal. Chest x-ray was normal. Left foot x-ray showed some soft tissue swelling with possible cellulitis. The patient was given IV vancomycin and cefepime and admitted for further work-up and admitted. Hospital Course: The patient was treated with IV cefepime from 07/12-07/16. The patient had no evidence of lower extremity cellulitis on discharge. I did not see any rash on his torso. The patient did develop some diarrhea while in the hospital. Stool cultures came back positive for C. difficile. C. difficile toxin was negative, however given his persistent diarrhea, he was given a prescription for oral vancomycin for 10 days. His leukocytosis resolved to 8.6 at time of discharge. Potassium of 3.2 on 07/15. This should be repeated in a week. Pertinent Studies: Chest x-ray:normal. Left foot x-ray: some soft tissue swelling with possible cellulitis Resuscitation Status: 07/12/20 08:50 Resuscitation Status Routine Resuscitation Status: FULL: Full Resuscitation Lab Results: 07/15/20 04:52 07/15/20 04:52 Microbiology - Entire Visit 07/15/20 Unknown Stool Stool Culture - Final 07/14/20 Unknown Stool C. difficile GDH Antigen & Toxins - Final 07/14/20 Unknown Stool Clostridioides difficile Toxins A&B (PCR) - Final 07/15/20 Unknown Stool Campylobacter Antigen Assay - Final 07/15/20 Unknown Stool Shiga Toxin Test - Final 07/15/20 Unknown Stool Stool Lactoferrin - Final 07/15/20 Unknown Stool Escherichia coli 0157 Culture - Final Vitals: Weight Weight 198 lb 6.656 oz Physical Exam: The patient was seen and examined on the day of discharge. General Appearance: NAD, awake alert Eye: PERRL, anicteric sclera ENT: normocephalic atraumatic, no oropharyngeal lesions Neck: supple, symmetric, no JVD, no thyromegaly Respiratory: CTAB, no wheezes, no rales, no ronchi Cardiovascular: RRR, no murmur, no gallops, no rubs Gastrointestinal: soft, non-tender, non-distended, normal bowel sounds Extremities: no cyanosis, no clubbing, no edema Skin: normal turgor, no lesions, no rashes Neurological: cranial nerve grossly intact, normal sensation to touch, no weakness, no focal deficits, no new deficit Musculoskeletal: normal tone, normal strength, no muscle wasting PSYCH: normal affect, normal behavior, A&O x 3, oriented to person Problem Plan of Treatment: repeat BMP in a week to evaluate resolution of hypokalemia Plan Prescriptions: Vancomycin HCl [First Vancomycin] 125 mg PO Q6H #200 ml Amlodipine [Norvasc] 5 mg PO DAILY #30 tab Home Medications: Medication Instructions Recorded Confirmed Type Gabapentin 300 mg PO BID 10/07/15 07/12/20 History Lisinopril [Zestril] 40 mg PO DAILY 10/07/15 07/12/20 History Rivaroxaban [Xarelto] 20 mg PO QPM-WM 10/07/15 07/12/20 History diphenhydrAMINE [Benadryl] 25 mg PO Q6H PRN #20 cap 02/16/20 07/12/20 Rx Atorvastatin Calcium 20 mg PO DAILY 07/12/20 07/12/20 History Metoprolol Tartrate 25 mg PO BID 07/12/20 07/12/20 History Amlodipine [Norvasc] 5 mg PO DAILY #30 tab 07/16/20 Rx Vancomycin HCl [First Vancomycin] 125 mg PO Q6H #200 ml 07/16/20 Rx Allergies: No Known Drug Allergies Allergy (Verified 07/12/20 05:26) Activity:: Activity as Tolerated Referrals: Emer[facility] Denson [Outside] (Currently on home health services.) Afshin Ellis MD [Primary Care Provider] - (TORREY Goodman, RN will be calling you approximately 72 hours after discharge to check on you. If you should need anything with regards to your healthcare prior to that time, please contact her directly at (Saturday - Saturday 8:00 a.m. to 5:00 p.m.)) Disposition: HOME Quality CORE MEASURES:: N/A
== END 2020-07-16 16:24 | disposition home or self-care (01) | DRG 871 ==
LOC: ERS 02:53 → ERHOLD 04:15 → 2NO 18:09 → T4-B 07-16 02:12
PROVIDERS: ADMIT Internal Medicine; ATTEND Internal Medicine
DX: A41.9 Sepsis, unspecified organism (principal); R65.21 Severe sepsis with septic shock; E87.2 Acidosis; L03.116 Cellulitis of left lower limb; A04.72 Enterocolitis due to Clostridium difficile, not specified as recurrent; I10 Essential (primary) hypertension; I48.91 Unspecified atrial fibrillation; E11.51 Type 2 diabetes mellitus with diabetic peripheral angiopathy without gangrene; I25.10 Atherosclerotic heart disease of native coronary artery without angina pectoris; I95.1 Orthostatic hypotension; N18.30 Chronic kidney disease, stage 3 unspecified; E11.22 Type 2 diabetes mellitus with diabetic chronic kidney disease; E11.65 Type 2 diabetes mellitus with hyperglycemia; R21 Rash and other nonspecific skin eruption; Z90.49 Acquired absence of other specified parts of digestive tract; Z95.0 Presence of cardiac pacemaker; Z89.422 Acquired absence of other left toe(s); Z87.891 Personal history of nicotine dependence; Z95.5 Presence of coronary angioplasty implant and graft; Z88.0 Allergy status to penicillin; Z88.8 Allergy status to other drugs, medicaments and biological substances; Z79.01 Long term (current) use of anticoagulants; L97.529 Non-pressure chronic ulcer of other part of left foot with unspecified severity; E86.0 Dehydration; E87.6 Hypokalemia; Z20.822 Contact with and (suspected) exposure to COVID-19
CPT/HCPCS: 36415; 36416; 51701; 71045; 80048; 80053; 80202; 81003; 81015; 82553; 83605; 83630; 83690; 83735; 83880; 84484; 85025; 87045; 87046; 87324; 87427; 87449; 87493; 87635; 93005; 96365; 96367; 96375; J0360; J0692; J0780; J1815; J2405; J3370; J3475; J3490; J7050; S0028; U0003; U0005

== ENCOUNTER 2021-05-20 16:10 | Observation (INO) | payer MEDICARE, OTHER ==
[2021-05-20 16:36] LABS: #Basophils 0.1 thou/uL (0.0-0.2); #Eosinphils 0.3 thou/uL (0.0-0.7); #Lymphocytes 3.1 thou/uL (1.20-3.40); #Neutrophils 5.2 thou/uL (1.40-6.50); %Basophils 0.9 % (0.0-1.0); %Eosinophils 3.1 % (0.0-10.0); %Monocytes 9.9 % (0.0-10.0); %Neutrophils 54.1 % (42.0-75.0); Hemoglobin 14.6 g/dL (14.0-18.0); Mean Corpuscular HGB CONC 33.5 g/dL (32.0-36.0); Mean Corpuscular Hemoglobin 30.4 pg (27.0-31.0); Mean Corpuscular Volume 90.7 fL (78.0-98.0); Mean Platelet Volume 8.4 fL (7.4-10.4); Platelet Count 226 thou/uL (130-400); RBC Distribution Width 13.2 % (11.5-14.5); Red Blood Cell (RBC) Count 4.81 mill/uL (4.70-6.10); White Blood Cell (WBC) Count 9.7 thou/uL (4.8-10.8)
[2021-05-20 16:47] LABS: AST (SGOT) 18 U/L (5-34); Anion Gap 16 mmol/L (10-20); Bilirubin, Total 0.9 mg/dL (0.2-1.2); Calcium 8.8 mg/dL (7.8-10.44); Carbon Dioxide 20 mmol/L (23-31); Chloride 108 mmol/L (98-107); Potassium 4.8 mmol/L (3.5-5.1); Sodium 139 mmol/L (136-145)
[2021-05-20 16:55] LABS: ALT (SGPT) 13 U/L (8-55); Albumin 3.6 g/dL (3.4-4.8); Alkaline Phosphatase 131 U/L (40-110); BUN (Urea Nitrogen) 23 mg/dL (8.4-25.7); Calc. Creatinine Clearance 0 mL/min (70-130); Globulin 3.1 g/dL (2.4-3.5); Glucose 143 mg/dL (83-110); Lipase 7 U/L (8-78); Protein, Total 6.7 g/dL (5.8-8.1)
[2021-05-20 17:04] LABS: Magnesium 2.1 mg/dL (1.6-2.6)
[2021-05-20 18:38] LABS: Bacteria/HPF None Seen HPF (None Seen); Bilirubin Negative (Negative); Blood, Urine Negative (Negative); Clarity Clear (Clear); Glucose, Urine (Dipstick) Normal (Negative); Ketone, Urine Negative (Negative); Leukocyte Negative Leu/uL (Negative); Nitrite Negative (Negative); Protein, Urine (Dipstick) 100 mg/dL (Neg-Trace); RBC/HPF 0-3 HPF (0-3); Squamous Epithelial 0-3 HPF (0-3); Urobilinogen Normal mg/dL (Less than 2); WBC/HPF 0-3 HPF (0-3); pH, Urine 5.5 (5.0-9.0)
[2021-05-20] MEDS ORDERED: Ondansetron ODT 4 MG TAB PO PRN (20:54)
[2021-05-20] MEDS ORDERED: Dextrose 5% in Water 1,000 ML IV PRN (20:54)
[2021-05-20] MEDS ORDERED: Dextrose 50% Abboject 50 ML SYRINGE SLOW IVP PRN (20:54)
[2021-05-20] MEDS ORDERED: HumaLOG 300 UNITS/3 ML VIAL SC PRN (20:54)
[2021-05-20] MEDS ORDERED: Ondansetron PF 4 MG/2 ML Vial IVP PRN (20:54)
[2021-05-20] MEDS ORDERED: Acetaminophen 325 MG TAB PO PRN (20:54)
[2021-05-20] MEDS ORDERED: Acetaminophen 650 MG Suppository PR PRN (20:54)
[2021-05-20 21:49] LABS: Troponin I Less than 0.010 ng/mL (< 0.028)
[2021-05-20 23:49] VITALS: BMI 31.5
[2021-05-21 00:55] LABS: Troponin I Less than 0.010 ng/mL (< 0.028)
[2021-05-21] MEDS: HumaLOG 300 UNITS/3 ML VIAL SC PRN ×2 (06:33→17:03)
[2021-05-21] MEDS ORDERED: FLU VACC QS2021-22(65YR UP)/PF 240 MCG/0.7 ML SYRINGE IM ONE (09:00)
[2021-05-21 12:21] LABS: SARS-CoV-2 PCR by NAA Not Detected (NotDetected)
[2021-05-22] MEDS: Atorvastatin Calcium 20 MG TAB PO SCH (09:28)
[2021-05-22] MEDS: HumaLOG 300 UNITS/3 ML VIAL SC PRN (12:22)
[2021-05-22] MEDS ORDERED: Rivaroxaban 10 MG TAB PO SCH (17:00)
[2021-05-23] MEDS: HumaLOG 300 UNITS/3 ML VIAL SC PRN (05:43)
[2021-05-23] MEDS ORDERED: Lisinopril 20 MG TAB PO SCH (09:00)
[2021-05-23] MEDS ORDERED: Amlodipine 5 MG TAB PO SCH (09:00)
[2021-05-23] MEDS ORDERED: Metoprolol Tartrate 25 MG TAB PO SCH (09:00)
[2021-05-23] MEDS: Atorvastatin Calcium 20 MG TAB PO SCH (10:11)
[2021-05-23 11:17] VITALS: TEMP 98.5
[2021-05-23 12:02] VITALS: BP 160/72
== END 2021-05-23 14:15 | disposition home or self-care (01) ==
LOC: ERS 16:10 → ERHOLD 19:57 → 2NO 23:31
PROVIDERS: ADMIT Student in an Organized Health Care Education/Training Program; ATTEND Internal Medicine
DX: R55 Syncope and collapse (principal); I12.9 Hypertensive chronic kidney disease with stage 1 through stage 4 chronic kidney disease, or unspecified chronic kidney disease; E11.22 Type 2 diabetes mellitus with diabetic chronic kidney disease; N18.30 Chronic kidney disease, stage 3 unspecified; I35.0 Nonrheumatic aortic (valve) stenosis; I48.91 Unspecified atrial fibrillation; Z20.822 Contact with and (suspected) exposure to COVID-19; Z79.01 Long term (current) use of anticoagulants; Z79.4 Long term (current) use of insulin; Z79.899 Other long term (current) drug therapy; Z95.0 Presence of cardiac pacemaker; Z95.5 Presence of coronary angioplasty implant and graft; Z87.891 Personal history of nicotine dependence
CPT/HCPCS: 51701; 70450; 71045; 72125; 80053; 82962 ×3; 83690; 83735; 84484 ×2; 85025; 90662; 93005; 93306; 94760; 97116; 97139 ×3; 97530; 99285; G0008; G0378 ×5; U0003; U0005; 36415; 36416; 81003; 81015; 90471; J1815